=== PATIENT | male | born 1935 | race Caucasian/White ===

== ENCOUNTER → 2017-06-04 14:28 | Outpatient (CLI) | payer MEDICARE, OTHER, SELFPAY ==
--- NOTE | 2017-06-04 14:53 | CT_ITS ---
STUDY: CT ABDOMEN AND PELVIS WITH CONTRAST REASON FOR EXAM: Male, 82 years old. Right groin pain near reverse ileostomy. RADIATION DOSAGE (If Supplied By Facility): CTDIvol = ( 15.03 ) mGy, DLP = ( 830.15 ) mGycm TECHNIQUE: Transaxial images were obtained from the dome of the diaphragm to the symphysis pubis without oral contrast. 100ML ml of Isovue 300 contrast was administered. Sagittal and coronal images were reconstructed. Individualized dose optimization techniques were used for this CT. COMPARISON: Prior comparison studies are not available for review at this time. FINDINGS: The visualized lung bases are unremarkable. The visualized portions of the heart are within normal limits. 7 mm moderately defined oblong low-density in the anterolateral right lobe of the liver (series 2 image 18) consistent with a small cyst or hemangioma. The portal vein diameter is 11 mm. Normal gallbladder and extrahepatic biliary system. Near the ras hepatis the diameter of the common bile duct is 11 mm, but this tapers normally as it passes through the head of the pancreas. There are multiple benign punctate calcified granulomata of the spleen. Normal pancreas. Normal bilateral adrenal glands. 10 mm cortical cyst in the midpole of the right kidney. 1.7 x 1.95 x 2.1 cm hypodense, well-defined cortical cyst seen at the upper pole of the left kidney. No hydronephrosis. Normal visualized stomach. The caliber of the small intestine is within normal limits. A knuckle of bowel projects into hernia or ileostomy site at the mid anterior right abdominal wall. There is an anastomotic suture line involving nondistended small bowel just deep and to the right of this herniated segment. The cecum resides in the anterior right upper quadrant. There are a few mid to distal sigmoid colonic diverticula consistent with diverticulosis. There is an anastomotic suture line at the mid body of the rectum. The appendix is visualized and appears normal. There is diffuse atherosclerotic calcification of the abdominal aorta. The mid to distal aortic diameter is 2.25 cm. There is diffuse atherosclerotic calcification of the iliofemoral arteries with elongation and tortuosity of the common iliac segments. 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 Normal inferior vena cava. Normal retroperitoneum. Normal urinary bladder. There are prostatic calcifications. There is a healed midline surgical incision of the anterior abdominal wall. There are diffuse degenerative changes of the visualized spine, and a 10 degree levoscoliosis centered at L4. There are also mild osteoarthritic degenerative changes of the bilateral sacroiliac and hip joints. CT/Abdomen/Pelvis WITH Contrast IMPRESSION: 1. Prior segmental rectosigmoid resection with anastomosis at the mid rectal vault. Suture line also seen involving a small bowel loop on the abdominal musculature of the mid right anterior abdominal wall. Medial to this is a herniated knuckle of small bowel, a possible ileostomy site. Clinical correlation is needed. 2. No sign of bowel obstruction. There are a few distal sigmoid colonic diverticula without acute radiculitis. Incidental note of the cecum in the anterior right upper quadrant. The appendix is normal. 3. Atherosclerotic calcification of the abdominal aorta and iliofemoral arteries, with elongation and tortuosity of the common iliac segments. By itself, the aortic calcification contents significant risk for future cardiovascular event, Abdominal Aortic Calcific Deposits Are an Important Predictor of Vascular Morbidity and Mortality; Jose Braun, et al. Circulation, 2001;103:9644-2356. There is also 1.95 cm fusiform ectasia of the distal left common iliac artery. 4. Bilateral renal cortical cysts. 5. Small cyst in the lateral right lobe of liver. 6. Degenerative changes of the spine and pelvis, as noted. Electronically Signed: Fadi Aguiar MD at 18:13 EDT , Service support ,
[2017-06-04 15:47] LABS: Absolute Lymphocyte Count 1.72 X10^3/ul (0.83-4.51); Absolute Neutrophil Count 2.5 X10^3/uL (2.0-7.7); Basophil# 0.04 X10^3/uL; Basophil% 0.8 % (0-1); Eosinophil# 0.14 X10^3/uL; Eosinophils% 2.8 % (0-5); Hematocrit 45.1 % (40-54); Hemoglobin 15.2 g/dl (13.0-16.5); Lymphocyte # 1.72 X10^3/ul (4.0); Lymphocyte % 34.3 % (19-41); Mean Corp Hgb Conc 33.7 g/gl (32-36); Mean Corpuscular Hgb 29.6 pg (27.0-32.0); Mean Corpuscular Volume 87.9 fL (80-94); Monocyte# 0.61 X10^3/uL; Monocyte% 12.2 % (0-10); Neutrophil % 49.7 % (47-70); POSITIVE COUNT NO; POSITIVE DIFFERENTIAL NO; POSITIVE MORPHOLOGY NO; Platelet Count 161 K/mm3 (150-450); RBC Distribution Width CV 14.1 % (11.6-14.6); RBC Distribution Width SD 44.9 fl (35.1-43.9); Red Blood Count 5.13 M/mm3 (4.6-6.2)
[2017-06-04 16:02] LABS: ALB/GLOB Ratio 1.1 RATIO (0.9-2.4); AST(SGOT) 38 U/L (15-37); Alanine Aminotransfer ALT/SGPT 31 U/L (16-61); Albumin, Serum 4.1 g/dL (3.2-5.0); Alkaline Phosphatase 41 U/L (45-117); Anion Gap 7 (5-15); BUN 29 mg/dL (7-18); BUN/Creat Ratio 27.4 RATIO (10-20); Calcium,Total 9.7 mg/dL (8.5-10.1); Chloride 106 mmol/L (98-107); Creatinine, Serum 1.06 mg/dL (0.70-1.30); EST Glomerular Filtration Rate 71 mL/min (>60); Est Glom Filt Rate - Afr Amer 86 mL/min (>60); Globulin 3.8 g/dL (2.2-4.2); Glucose 85 mg/dL (74-106); Protein, Total 7.9 g/dL (6.4-8.2); Sodium Level 141 mmol/L (136-145)
== END ==
PROVIDERS: Family Provider Family Medicine; PCP Family Medicine; Visit Provider Family Medicine
DX: K57.30 Diverticulosis of large intestine without perforation or abscess without bleeding (principal); K63.89 Other specified diseases of intestine; N28.1 Cyst of kidney, acquired; K76.89 Other specified diseases of liver
CPT/HCPCS: 36415; 74177; 80053; 85025; Q9967

== ENCOUNTER 2017-06-11 07:51 | Day surgery (SDC) | payer MEDICARE, OTHER, SELFPAY ==
[2017-06-11] VITALS (9 sets, daily range): BP systolic 99–136; BP diastolic 58–78; PULSE 62–78; RESP 16–18; TEMP 36.2–36.9; O2SAT 92–98; BMI 30.2
--- NOTE | 2017-06-11 | HERN_PTH ---
PATIENT: MANDY THORNTON [place] [facility] [id number] AGE/SX: 82/M ROOM: RE06/11/[address]: Dr. Sonido Mooney MD : [id number] BED: DIS: 06/11/2017 SPEC #: [id number] RECD: 06/11/17 14:27 STATUS: RACH DIANE #: [id number] TRACIE: 06/11/17 00:[address]: Sonido Mooney DEPT: SURGICAL PATHOLOGY RECD BY: Beto Morrison ENTERED: 06/11/17 14:27 SP TYPE: Hernia OTHR DR: Dr. Shailesh Adler MD Tissues: HERNIA Procedures: Surgery Specimen Level II HEADER OPERATION: Hernia, incisional repair with mesh, stoma sight PRE-OP DIAGNOSIS: Hernia TISSUE SUBMITTED: Hernia sac and fascia margin MICROSCOPIC DIAGNOSIS Hernia sac and fascia margin: Pieces of fibroadipose tissue, fibroconnective tissue and skin with reactive changes, consistent with hernia sac and fascia margin. SJ:stefan 06/12/17 MICROSCOPIC DESCRIPTION Slides are reviewed. GROSS DESCRIPTION Received in fixative is one container labeled with the patient's name and designated hernia sac and fascia margin. The specimen consists of a piece of adipose tissue measuring 4.5 x 3 x 1 cm. Also received is a piece of cates-white skin ellipse measuring 4 x 1.5 x 1 cm and a piece of soft tissue measuring 4 x 0.5 x 0.2 cm. No mass lesion is identified. Crown Pouncer sections are submitted in one cassette. / TYLER:stefan 06/11/17 TC:5 CPT: 22051
[2017-06-11 08:21] LABS: Prothrombin Time Fingerstick 12.9 SEC (11.9-14.4)
[2017-06-11 08:33] LABS: Partial Thromboplast Time 29.2 Seconds (24.1-36.2)
[2017-06-11 09:05] LABS: Hemoglobin A1c 6.9 % (4.2-6.3)
[2017-06-11 09:16] LABS: Bedside Glucose 155 mg/dL (70-110)
[2017-06-11] MEDS: Cefazolin 2 GM in 0.9% Normal Saline 100 ML IV (09:53)
[2017-06-11] MEDS: Bupivacaine Mpf 0.5% 30 ML VIAL (11:00)
--- NOTE | 2017-06-11 11:17 | PCM.OPRPT ---
Report of Operation Date of Procedure: 06/11/17 Pre-Operative Diagnosis: stoma site incisional hernia Post-Operative Diagnosis: stoma site incisional hernia, small bowel adhesions Surgery/Procedure Performed:: lysis of adhesions, repair of stoma/incisional hernia with mesh Description of Surgical Findings:: 3cm defect stitcher set up operator automatic: None Type of Anesthesia:: General Anesthesiologist: Pankaj Donis - ASA3 Specimen's removed: hernia sac & fascial margin Estimated Blood Loss (mL): 50 Fluids Replaced: 1300 Description of Procedure: The patient was brought to the operating suite. Sign in was performed verifying patient, site, procedure, position, and DVT prophylaxis with SCDs. Patient received 2 g Ancef antibiotic prophylaxis. the area of herniation just medial and inferior to the previous ileostomy incision was identified and marked in the holding area and the patient concurred this planned operative site. Following induction of general anesthetic, the patients abdomen was prepped and draped in the usual fashion. Timeout was performed verifying patient, site, position. Local anesthetic was injected . A curvilinear incision was made and dissection carried down to the scarred fascia laterally. the skin scarred tissue was excised and sent to pathology. Dissection was continued around the fascial root and dissection was carried inferiorly, medially until the hernia sac was identified and opened carefully. Multiple loops of small bowel were adherent to the hernia sac within the hernia and the peritoneum at the edge and intra-abdominal area. The small bowel was circumferentially dissected off of the sac and the anterior peritoneum. Once this was completed, the anterior medial hernia sac was fully dissected the subcutaneous tissues. Next, separation of the posterior and anterior sheaths were performed medially, superiorly, inferiorly and dissection was continued laterally, creating a posterior and anterior plane anterior to the rectus muscle. The hernia sac was then excised. The peritoneum closed the running 3-0 Vicryl suture. The posterior rectus sheath was then closed with a running 0 Prolene suture. Armin 5x7.5cm (folded to 5x7.5)[id number], lot [id number] exp 10/24/21 - was then folded in thirds and secured with interrupted 0 Prolene sutures to the anterior fascial sheath at the margins of the pocket created between the posterior and anterior sheaths secured with interrupted 0 Prolene sutures. Next, the anterior sheath was closed with a running 0 Prolene suture, closing the fascial defect encompassing the median line of the mesh with the fascial closure Following this subcutaneous fat was reapproximatedwith a 3-0 Vicryl suture. Skin was closed with a running 4-0 Monocryl subcuticular sutures. Steri-Strips and bandages were applied. The patient was brought to recovery room in stable condition. Grafts/Implants Used: Parietene 5x7.5cm (folded to 5x7.5)ref-[id number], lot [id number] exp 10/24/21 - Admit VTE Documentation VTE Present on Admission: No VTE Mechan Device Prophylaxis: SCD's
--- NOTE | 2017-06-11 11:21 | OP.PCM_ITS ---
Report of Operation Date of Procedure: 06/11/17 Pre-Operative Diagnosis: stoma site incisional hernia Post-Operative Diagnosis: stoma site incisional hernia, small bowel adhesions Surgery/Procedure Performed:: lysis of adhesions, repair of stoma/incisional hernia with mesh Description of Surgical Findings:: 3cm defect driver salesman: None Type of Anesthesia:: General Anesthesiologist: Pankaj Donis - ASA3 Specimen's removed: hernia sac & fascial margin Estimated Blood Loss (mL): 50 Fluids Replaced: 1300 Description of Procedure: The patient was brought to the operating suite. Sign in was performed verifying patient, site, procedure, position, and DVT prophylaxis with SCDs. Patient received 2 g Ancef antibiotic prophylaxis. the area of herniation just medial and inferior to the previous ileostomy incision was identified and marked in the holding area and the patient concurred this planned operative site. Following induction of general anesthetic, the patient?s abdomen was prepped and draped in the usual fashion. Timeout was performed verifying patient, site , position. Local anesthetic was injected . A curvilinear incision was made and dissection carried down to the scarred fascia laterally. the skin scarred tissue was excised and sent to pathology. Dissection was continued around the fascial root and dissection was carried inferiorly, medially until the hernia sac was identified and opened carefully. Multiple loops of small bowel were adherent to the hernia sac within the hernia and the peritoneum at the edge and intra- abdominal area. The small bowel was circumferentially dissected off of the sac and the anterior peritoneum. Once this was completed, the anterior medial hernia sac was fully dissected the subcutaneous tissues. Next, separation of the posterior and anterior sheaths were performed medially, superiorly, inferiorly and dissection was continued laterally, creating a posterior and anterior plane anterior to the rectus muscle. The hernia sac was then excised. The peritoneum closed the running 3-0 Vicryl suture. The posterior rectus sheath was then closed with a running 0 Prolene suture. Parietene 5x7.5cm (folded to 5x7.5)ref-[id number], lot [id number] exp 10/24/21 - was then folded in thirds and secured with interrupted 0 Prolene sutures to the anterior fascial sheath at the margins of the pocket created between the posterior and anterior sheaths secured with interrupted 0 Prolene sutures. Next , the anterior sheath was closed with a running 0 Prolene suture, closing the fascial defect encompassing the median line of the mesh with the fascial closure Following this subcutaneous fat was reapproximatedwith a 3-0 Vicryl suture. Skin was closed with a running 4-0 Monocryl subcuticular sutures. Steri-Strips and bandages were applied. The patient was brought to recovery room in stable condition. Grafts/Implants Used: Parietene 5x7.5cm (folded to 5x7.5)ref-[id number], lot [id number] exp 10/24/21 - Admit VTE Documentation VTE Present on Admission: No VTE Mechan Device Prophylaxis: SCD's
--- NOTE | 2017-06-11 11:26 | PCM.DC.HER ---
Discharge Diet: Light diet - advance as tolerated Discharge Activity: Return to Normal Activity, May Drive - when you are no longer taking narcotic pain medications., May Shower - with the bandage in place 1-2 days after surgery. Lifting Restrictions: 20 pounds for 8 weeks. Additional Activity Instructions:: Climbing stairs is fine, walking is encouraged. Sitting in bed may be uncomfortable. Sitting up using your lateral muscles (sitting up sideways) is usually more comfortable. Do not drive, work heavy equipment of sign legal documents for 24 hours. If your hernia repair was an ingunial repair, you may have scrotal swelling, an ice pack and/or athletic support can provide more comfort. Pain medications may cause nausea, you should typically eat light foods as you take your pain medications. Pain medications may also cause constipation. If you have difficulty with this, discuss with your doctor. Call your doctor if your incision/area has: Continuous Slow Oozing, Sudden Increased Bleeding, Increased Pain/ Swelling, Increased Redness, Foul Smelling Discharge Call your doctor if you observe: Fever of 101 or Higher Suture Line Care: Avoid Pulling/Pushing, Avoid Pinching/Bending Additional Dressing/Incision Instructions:: Leave the operative bandage on for 2-3 days. When you remove the bandage, leave the steri-strips on place until your follow up appointment or they fall off. Allergies/Adverse Reactions: Allergies acetaminophen [From Percocet] Allergy (Verified 06/10/17 09:12) I GET GOOFY iodine Allergy (Verified 06/10/17 09:12) Itching oxycodone [From Percocet] Allergy (Verified 06/10/17 09:12) I GET GOOFY Medications to take at Discharge Ascorbic Acid [Vitamin C] 500 mg PO DAILY@0800 12/01/15 Cholecalciferol (VIT D3) [Vitamin D3] 2,000 unit PO DAILY 12/01/15 Metformin HCl [Metformin HCl ER] 1,000 mg PO BID 12/01/15 Atenolol [Tenormin (beta erasmo)] 25 mg PO QHS 06/10/17 B2/Vit A,C & E/Lut/Zeaxanth/Mn [Icaps Tablet] 1 tab PO DAILY 06/10/17 Celecoxib [Celebrex] 200 mg PO PRN PRN 06/10/17 Pregabalin [Lyrica] 100 mg PO PRN PRN 06/10/17 Simvastatin 20 mg PO QHS 06/10/17 Hydrocodone/Acetaminophen [[place] 5-325 Tablet] 1 ea PO Q6H PRN PRN 7 Days #14 tab 06/11/17 The following prescriptions were given: Hydrocodone/Acetaminophen [[place] 5-325 Tablet] 1 ea PO Q6H PRN PRN 7 Days #14 tab PRN Reason: Pain Primary Care Physician: Shaliesh Adler MD [Primary Care Provider] - Please Follow Up With: Sonido Mooney MD - [phone] When: Plan to have a follow up appointment in 7 days. Call to schedule.
[2017-06-11 12:06] LABS: Bedside Glucose 114 mg/dL (70-110)
== END 2017-06-11 14:15 | disposition home or self-care (01) ==
LOC: SDC 07:51 → AC 07:53
PROVIDERS: Family Provider Family Medicine; PCP Family Medicine; Visit Provider Surgery
PROC: (CPT 49560; principal; 2017-06-11 09:25)
DX: K43.2 Incisional hernia without obstruction or gangrene (principal); K66.0 Peritoneal adhesions (postprocedural) (postinfection); M19.90 Unspecified osteoarthritis, unspecified site; I25.10 Atherosclerotic heart disease of native coronary artery without angina pectoris; E11.9 Type 2 diabetes mellitus without complications; I10 Essential (primary) hypertension; E78.00 Pure hypercholesterolemia, unspecified; G25.81 Restless legs syndrome; Z85.038 Personal history of other malignant neoplasm of large intestine; Z87.19 Personal history of other diseases of the digestive system; Z87.891 Personal history of nicotine dependence; Z95.1 Presence of aortocoronary bypass graft; Z96.653 Presence of artificial knee joint, bilateral; Z79.84 Long term (current) use of oral hypoglycemic drugs; Z79.899 Other long term (current) drug therapy
CPT/HCPCS: 00832; 49560; 49568; 36416; 82962; 83036; 85610; 85730; 88302; J7120; C1781

== ENCOUNTER → 2017-10-06 09:10 | Outpatient (CLI) | payer MEDICARE, OTHER, SELFPAY ==
[2017-10-06 13:05] LABS: AST(SGOT) 30 U/L (15-37); Alanine Aminotransfer ALT/SGPT 26 U/L (16-61); Albumin, Serum 3.6 g/dL (3.2-5.0); Alkaline Phosphatase 44 U/L (45-117); Bilirubin, Direct 0.17 mg/dL (0.00-0.30); Cholesterol 127 mg/dL (200); High Density Lipoprotein 29 mg/dL; Protein, Total 7.6 g/dL (6.4-8.2); Triglycerides 225 mg/dL; Very Low Density Lipoprotein 45 mg/dL (5-40)
== END ==
PROVIDERS: Family Provider Family Medicine; PCP Family Medicine; Visit Provider Physician Assistant Medical
DX: E78.5 Hyperlipidemia, unspecified (principal); Z79.899 Other long term (current) drug therapy
CPT/HCPCS: 36415; 80061; 80076

== ENCOUNTER → 2018-07-31 09:56 | Outpatient (CLI) | payer MEDICARE, OTHER, SELFPAY ==
[2017-11-26 15:41] VITALS: BMI 29.5
[2018-07-31 13:17] LABS: Vitamin B12 239 pg/mL (211-911)
== END ==
PROVIDERS: Family Provider Family Medicine; PCP Family Medicine; Referring Provider Family Medicine; Visit Provider Family Medicine
DX: F03.90 Unspecified dementia, unspecified severity, without behavioral disturbance, psychotic disturbance, mood disturbance, and anxiety (principal)
CPT/HCPCS: 36415; 82607

== ENCOUNTER → 2018-10-05 10:58 | Outpatient (CLI) | payer MEDICARE, OTHER, SELFPAY ==
[2018-08-14 13:07] VITALS: BMI 29.8
[2018-10-05 12:50] LABS: Anion Gap 10 (5-15); BUN 21 mg/dL (7-18); BUN/Creat Ratio 18.3 RATIO (10-20); Chloride 107 mmol/L (98-107); Cholesterol 129 mg/dL (200); Creatinine, Serum 1.15 mg/dL (0.70-1.30); EST Glomerular Filtration Rate 64 mL/min (>60); Est Glom Filt Rate - Afr Amer 78 mL/min (>60); Glucose 136 mg/dL (74-106); High Density Lipoprotein 33 mg/dL; Sodium Level 141 mmol/L (136-145); Triglycerides 254 mg/dL; Very Low Density Lipoprotein 51 mg/dL (5-40)
== END ==
PROVIDERS: Family Provider Family Medicine; PCP Family Medicine; Visit Provider Family Medicine
DX: E11.9 Type 2 diabetes mellitus without complications (principal)
CPT/HCPCS: 36415; 80048; 80061

== ENCOUNTER → 2019-04-05 11:43 | Outpatient (CLI) | payer MEDICARE, OTHER, SELFPAY ==
[2019-03-08 10:55] VITALS: BMI 29.5
[2019-04-05 14:27] LABS: Anion Gap 5 (5-15); BUN 21 mg/dL (7-18); BUN/Creat Ratio 20.2 RATIO (10-20); Calcium,Total 10.2 mg/dL (8.5-10.1); Chloride 105 mmol/L (98-107); Cholesterol 130 mg/dL (200); Creatinine, Serum 1.04 mg/dL (0.70-1.30); EST Glomerular Filtration Rate 72 mL/min (>60); Est Glom Filt Rate - Afr Amer 87 mL/min (>60); Glucose 91 mg/dL (74-106); High Density Lipoprotein 35 mg/dL; Potassium 4.2 mmol/L (3.5-5.1); Sodium Level 138 mmol/L (136-145); Triglycerides 207 mg/dL; Very Low Density Lipoprotein 41 mg/dL (5-40)
== END ==
PROVIDERS: PCP Family Medicine; Referring Provider Family Medicine; Visit Provider Family Medicine
DX: E11.9 Type 2 diabetes mellitus without complications (principal); E78.5 Hyperlipidemia, unspecified
CPT/HCPCS: 36415; 80048; 80061

== ENCOUNTER → 2020-01-13 11:10 | Outpatient (CLI) | payer MEDICARE, OTHER, SELFPAY ==
[2019-09-07 09:11] VITALS: BMI 29.9
[2020-01-13 12:49] LABS: Anion Gap 1 (5-15); BUN 14 mg/dL (7-18); BUN/Creat Ratio 11.9 RATIO (10-20); Calcium,Total 9.8 mg/dL (8.5-10.1); Chloride 109 mmol/L (98-107); Cholesterol 145 mg/dL (200); Creatinine, Serum 1.18 mg/dL (0.70-1.30); EST Glomerular Filtration Rate 62 mL/min (>60); Est Glom Filt Rate - Afr Amer 75 mL/min (>60); Glucose 111 mg/dL (74-106); High Density Lipoprotein 32 mg/dL; Potassium 4.2 mmol/L (3.5-5.1); Sodium Level 140 mmol/L (136-145); Triglycerides 256 mg/dL; Very Low Density Lipoprotein 51 mg/dL (5-40)
== END ==
PROVIDERS: PCP Family Medicine; Visit Provider Family Medicine
DX: E11.9 Type 2 diabetes mellitus without complications (principal)
CPT/HCPCS: 36415; 80048; 80061

== ENCOUNTER → 2020-07-19 11:00 | Outpatient (CLI) | payer MEDICARE, OTHER, SELFPAY ==
[2020-06-05 13:48] VITALS: BMI 28.0
[2020-07-19 12:34] LABS: Anion Gap 6 (5-15); BUN 18 mg/dL (7-18); BUN/Creat Ratio 19.2 RATIO (10-20); Chloride 106 mmol/L (98-107); Cholesterol 135 mg/dL (200); Creatinine, Serum 0.94 mg/dL (0.70-1.30); EST Glomerular Filtration Rate 81 mL/min (>60); Est Glom Filt Rate - Afr Amer 98 mL/min (>60); Glucose 105 mg/dL (74-106); High Density Lipoprotein 34 mg/dL; Potassium 3.7 mmol/L (3.5-5.1); Sodium Level 141 mmol/L (136-145); Triglycerides 209 mg/dL; Very Low Density Lipoprotein 42 mg/dL (5-40)
== END ==
PROVIDERS: PCP Family Medicine; Referring Provider Family Medicine; Visit Provider Family Medicine
DX: E11.9 Type 2 diabetes mellitus without complications (principal)
CPT/HCPCS: 36415; 80048; 80061

== ENCOUNTER → 2021-02-21 11:21 | Outpatient (CLI) | payer MEDICARE, OTHER, SELFPAY ==
[2021-02-21 15:29] LABS: Anion Gap 5 (5-15); BUN 13 mg/dL (7-18); BUN/Creat Ratio 12.4 RATIO (10-20); Calcium,Total 10.1 mg/dL (8.5-10.1); Chloride 106 mmol/L (98-107); Cholesterol 139 mg/dL (200); Creatinine, Serum 1.05 mg/dL (0.70-1.30); EST Glomerular Filtration Rate 71 mL/min (>60); Est Glom Filt Rate - Afr Amer 86 mL/min (>60); Glucose 165 mg/dL (74-106); High Density Lipoprotein 34 mg/dL; Potassium 3.8 mmol/L (3.5-5.1); Sodium Level 140 mmol/L (136-145); Triglycerides 238 mg/dL; Very Low Density Lipoprotein 48 mg/dL (5-40)
== END ==
PROVIDERS: PCP Family Medicine; Visit Provider Family Medicine
DX: I10 Essential (primary) hypertension (principal)
CPT/HCPCS: 36415; 80048; 80061

== ENCOUNTER 2021-05-23 11:05 | Outpatient (CLI) | payer MEDICARE, OTHER, SELFPAY ==
[2021-05-23 13:18] LABS: Anion Gap 5 (5-15); BUN 19 mg/dL (7-18); BUN/Creat Ratio 17.4 RATIO (10-20); Calcium,Total 9.6 mg/dL (8.5-10.1); Chloride 106 mmol/L (98-107); Creatinine, Serum 1.09 mg/dL (0.70-1.30); EST Glomerular Filtration Rate 68 mL/min (>60); Est Glom Filt Rate - Afr Amer 82 mL/min (>60); Glucose 138 mg/dL (74-106); Potassium 3.8 mmol/L (3.5-5.1); Sodium Level 139 mmol/L (136-145)
[2021-05-23 13:40] LABS: Hemoglobin A1c 5.6 % (3.8-5.6)
== END 2021-05-23 23:59 | disposition home or self-care (01) ==
LOC: MFPLAB 11:09
PROVIDERS: PCP Family Medicine; Referring Provider Family Medicine; Visit Provider Family Medicine
DX: E11.9 Type 2 diabetes mellitus without complications (principal)
CPT/HCPCS: 36415; 80048; 83036

== ENCOUNTER → 2021-08-29 | Outpatient (CLI) | payer MEDICARE, OTHER, SELFPAY ==
[2021-08-29 15:25] LABS: Anion Gap 6 (5-15); BUN 22 mg/dL (7-18); BUN/Creat Ratio 20.2 RATIO (10-20); Calcium,Total 9.9 mg/dL (8.5-10.1); Chloride 107 mmol/L (98-107); Cholesterol 122 mg/dL (200); Creatinine, Serum 1.09 mg/dL (0.70-1.30); EST Glomerular Filtration Rate 68 mL/min (>60); Est Glom Filt Rate - Afr Amer 82 mL/min (>60); Glucose 120 mg/dL (74-106); High Density Lipoprotein 27 mg/dL; Potassium 3.9 mmol/L (3.5-5.1); Sodium Level 140 mmol/L (136-145); Triglycerides 194 mg/dL; Very Low Density Lipoprotein 39 mg/dL (5-40)
== END | disposition home or self-care (01) ==
LOC: MFPLAB 11:21
PROVIDERS: PCP Family Medicine; Visit Provider Family Medicine
DX: E11.9 Type 2 diabetes mellitus without complications (principal)
CPT/HCPCS: 36415; 80048; 80061

== ENCOUNTER → 2021-09-03 | Outpatient (CLI) | payer MEDICARE, OTHER, SELFPAY | END | disposition home or self-care (01) | LOC: MFPLAB 15:40 | PROVIDERS: PCP Family Medicine; Visit Provider Family Medicine | DX: L02.91 Cutaneous abscess, unspecified (principal) | CPT/HCPCS: 87070; 87077; 87186; 87205 ==

== ENCOUNTER → 2021-11-26 | Outpatient (CLI) | payer MEDICARE, OTHER, SELFPAY ==
[2021-11-26 18:29] LABS: Anion Gap 8 (5-15); BUN 17 mg/dL (7-18); Chloride 103 mmol/L (98-107); Cholesterol 135 mg/dL (200); EST Glomerular Filtration Rate 75 mL/min (>60); Est Glom Filt Rate - Afr Amer 91 mL/min (>60); Glucose 134 mg/dL (74-106); High Density Lipoprotein 32 mg/dL; Potassium 3.9 mmol/L (3.5-5.1); Sodium Level 140 mmol/L (136-145); Triglycerides 204 mg/dL; Very Low Density Lipoprotein 41 mg/dL (5-40)
== END | disposition home or self-care (01) ==
LOC: MFPLAB 11:35
PROVIDERS: PCP Family Medicine; Visit Provider Family Medicine
DX: I10 Essential (primary) hypertension (principal)
CPT/HCPCS: 36415; 80048; 80061

== ENCOUNTER 2022-02-08 09:22 | Inpatient (IN) | payer MEDICARE, OTHER, SELFPAY ==
[2022-02-08] VITALS (8 sets, daily range): BP systolic 96–113; BP diastolic 53–60; PULSE 55–72; RESP 12–20; TEMP 36.3–37.2; O2SAT 88–97; BMI 25.3; BMI 24.7
--- NOTE | 2022-02-08 10:12 | CT_ITS ---
STUDY: CT BRAIN WITHOUT CONTRAST REASON FOR EXAM: Male, 87 years old. Head injury due to a fall. RADIATION DOSAGE (If Supplied By Facility): CTDIvol = ( 44.99 ) mGy, DLP = ( 745.49 ) mGycm TECHNIQUE: Transaxial CT imaging of the brain was performed without administration of intravenous contrast material. Individualized dose optimization techniques were used for this CT. COMPARISON: No relevant priors. FINDINGS: Normal soft tissue structures. Normal calvarium. There is mild cerebral atrophy with widening of the extra-axial spaces and ventricular dilatation. There are areas of decreased attenuation within the white matter tracts of the supratentorial brain, consistent with microvascular disease changes. Normal basal ganglia and thalami. Normal brainstem. Normal cerebellum. There is no intracranial hemorrhage. There are no findings of an acute ischemic infarction. Atherosclerotic plaque formation of the vertebral arteries and cavernous portions of the internal carotid arteries bilaterally. Normal visualized paranasal sinuses. CT/Brain/Head without Contrast IMPRESSION: Chronic involutional changes of the brain. Electronically Signed: Brandon Kaplan MD at 10:42 EST ,
--- NOTE | 2022-02-08 10:12 | EKG12_ITS ---
Test Reason : FALL Blood Pressure : / mmHG Vent. Rate : 059 BPM Atrial Rate : 059 BPM P-R Int : 186 ms QRS Dur : 090 ms QT Int : 438 ms P-R-T Axes : 103 010 057 degrees QTc Int : 433 ms Sinus bradycardia Nonspecific T wave abnormality Abnormal ECG Confirmed by EMANUEL WELLINGTON, ANNETTE ([id number]), editorial director RUBEN GRIMES ([id number]) on 02/11/2022 12:58:35 PM Referred By: GENEVIEVE Confirmed By:ANNETTE CASTELLANOS MD
--- NOTE | 2022-02-08 10:12 | RAD_ITS ---
STUDY: X-RAY CHEST REASON FOR EXAM: Male, 87 years old. Fever. Increasing generalized weakness. TECHNIQUE: Single AP portable view of the chest. COMPARISON: Comparison is made with prior study dated 03/11/2017. FINDINGS: EKG electrodes are seen. Stable increased interstitial markings at the lung bases suggestive of a scarring. There is no demonstrated pleural abnormality. Sternal cerclage wires and vascular clips are present from a prior sternotomy and coronary artery bypass graft procedure (CABG). Calcified bilateral hilar lymph nodes. Normal visualized pulmonary arteries. There is atherosclerotic calcification of the aortic arch with tortuosity. There are diffuse degenerative changes of the visualized thoracic spine. Normal visualized ribs, clavicles, and shoulders. There is no demonstrated abnormality of the visualized soft tissue structures of the upper abdomen. RAD/Chest 1 View (Portable) IMPRESSION: Stable increased interstitial markings suggestive of chronic scarring. Prior CABG. Electronically Signed: Brandon Kaplan MD at 10:58 EST ,
--- NOTE | 2022-02-08 10:17 | ED.VIS.FALL ---
HPI HPI - Fall History of Present Illness Chief Complaint: Fall Narrative Narrative: 87-year-old male with history of diabetes, hyperlipidemia, hypertension, PVD, CABG presenting today with generalized weakness. His states that he has dementia and he has been slowly declining in his ability to ambulate. His gives the history as he is a poor informant. She states that at 1 point yesterday he fell and she could not get him off the ground. She called EMS who helped him get on his feet and get into bed. She states that she refused to have him transferred to the hospital yesterday but notes that he had a fever of 103 ?F yesterday was treated with Tylenol. There is been no return of fever. She states he coughs but nothing out of the ordinary. She does note that she had a cold this last week and recovered. She states that today he was on the toilet and fell. This was not witnessed but she believes he hit his head. He is not acting abnormal for her and states this is his baseline. She is concerned because he is too weak now to walk with his walker. She is concerned she will fall. She wants to try to get him into an extended care facility. [facility] Medical History Anemia Atherosclerotic heart disease of [place] coronary artery without angina pectoris Bilateral carotid artery stenosis Essential hypertension Peripheral vascular disease Pure hypercholesterolemia Thrombocythemia Home Medications nitroglycerin 0.4 mg sublingual tablet 0.4 mg sublingual Q5-15M PRN chest pain #90 tabs 11/26/17 [Rx Last Taken Unknown] metformin 1,000 mg tablet 1,000 mg PO DAILY 08/14/18 [History Last Taken 02/07/22] memantine 5 mg tablet 5 mg PO QAM 06/05/20 [History Last Taken 02/07/22] simvastatin 20 mg tablet 20 mg PO QHS #90 tabs 06/27/21 [Rx Last Taken 02/07/22] atenolol 25 mg tablet 25 mg PO QHS #90 tabs 10/02/21 [Rx Last Taken 02/07/22] donepezil 10 mg tablet 20 mg PO DAILY 01/09/22 [History Last Taken 02/07/22] quetiapine 200 mg tablet (Seroquel) 200 mg PO DAILY 01/09/22 [History Last Taken 02/07/22] Allergy/AdvReac Type Severity Reaction Status Date / Time acetaminophen [From Percocet] Allergy I GET Verified 02/08/22 09:22 GOOFY iodine Allergy Itching Verified 02/08/22 09:22 oxycodone [From Percocet] Allergy I GET Verified 02/08/22 09:22 GOOFY Surgical History History of hernia repair (~05/2017) Hx of CABG (~10/09/00) Social History Smoking Status: Former smoker ROS ROS ED Review of Systems ROS Unobtainable: due to mental status EXAM Physical Exam Const Vital Signs: 02/08/22 09:23 02/08/22 09:32 Temperature 98 F Temperature Source Oral Pulse Rate 72 Respiratory Rate 18 Respiratory Pattern Normal Blood Pressure 113/60 Blood Pressure Mean 77 Pulse Ox 88 Oxygen Delivery Method Room Air Positive well nourished General Appearance ED: NAD HEENT Reports normocephalic and TM's normal bilaterally atraumatic Eyes PERRL and EOMs intact bilaterally Neck full ROM Chest Wall inspection of chest normal and palpation of chest normal Resp normal respiratory effort and no retractions Cardio regular rate and regular rhythm GI non-tender Back/Spine no CVA tenderness Neuro CN's II-XII intact bilaterally, moves all extremities, no focal motor deficits and no sensory deficits noted Sensorium / Orientation: alert Motor Exam: general weakness Psych mental status grossly normal MDM MDM MDM Narrative Medical decision making narrative: 87-year-old male presenting with generalized weakness and falls. Patient is a poor informant and the history given by his . She has concerned about his weakness, inability ambulate, falls. She also stated that he had a fever yesterday which improved with Tylenol. EKG on my interpretation shows a sinus rhythm with a ventricular to 59 bpm without sign of ischemic change or dysrhythmia. Chest x-ray on my interpretation shows no acute cardiopulmonary process and the radiologist interprets this and agrees. Pelvis x-ray shows no acute fractures. on my interpretation. CT brain was obtained and is negative for acute intracranial findings. CBC shows pancytopenia. Patient is known to have thrombocytopenia and anemia. CMP shows normal LFTs. Creatinine slightly elevated 1.31. BUN/creatinine ratio 26. Electrolytes unremarkable with exception of potassium 3.3. Patient was given a 500 cc bolus of normal saline. High-sensitivity troponin returned at 47. BNP slightly elevated 164. He did test positive for influenza A today. Given that the patient is unable to ambulate and his cannot care for him he will need to be hospitalized. We will discussed with the hospitalist. Impression: 1. Generalized weakness 2. Falls 3. Pancytopenia 4. Dehydration 5. Influenza A 6. Closed head injury Lab Data Attestation: I reviewed the patient's lab results. Labs: Laboratory Results - last 24 hr 02/08/22 02/08/22 02/08/22 09:40 09:40 09:40 WBC 3.8 L RBC 4.23 L Hgb 12.0 L Hct 38.0 L MCV 89.8 MCH 28.4 MCHC 31.6 L RDW Std Deviation 46.1 H RDW Coeff of Meryl 14.1 Plt Count 90 L MPV 10.2 Immature Gran % (Auto) 0.300 Neut % (Auto) 66.5 Lymph % (Auto) 25.6 [place] % (Auto) 6.8 Eos % (Auto) 0.3 Baso % (Auto) 0.5 Absolute Neuts (auto) 2.6 Absolute Lymphs (auto) 0.98 Nucleated RBC % 0 Differential Comment SCANNED Platelet Estimate MOD DEC Sodium 141 Potassium 3.3 L Chloride 106 Carbon Dioxide 30.0 Anion Gap 5 BUN 26 H Creatinine 1.31 H Estim Creat Clear Calc 41.02 Est GFR (MDRD) Af Amer 67 Est GFR (MDRD) Non-Af 55 L BUN/Creatinine Ratio 19.8 Glucose 133 H Calcium 9.5 Total Bilirubin 0.70 AST 41 H ALT 13 L Alkaline Phosphatase 48 Troponin I High Sens 47 B-Natriuretic Peptide 164.8 H Total Protein 7.2 Albumin 3.4 Globulin 3.8 Albumin/Globulin Ratio 0.9 Radiography Diagnostic Testing: Clinical Impression(s) from Imaging Studies Brain CT 02/08/22 10:12 IMPRESSION: Chronic involutional changes of the brain. Electronically Signed: Brandon Kaplan MD at 10:42 EST , Chest X-Ray 02/08/22 10:12 IMPRESSION: Stable increased interstitial markings suggestive of chronic scarring. Prior CABG. Electronically Signed: Brandon Kaplan MD at 10:58 EST , Pelvis X-Ray 02/08/22 10:20 IMPRESSION: Degenerative changes. No fracture is seen. Electronically Signed: Brandon Kaplan MD at 10:59 EST , Discharge Plan Triage Chief Complaint: Fall ED Provider: Chester Burger Dx/Rx/DC Orders Prescriptions: No Action nitroglycerin 0.4 mg tablet, sublingual 0.4 mg SUBLINGUAL Q5-15M PRN (Reason: chest pain) Qty: 90 6RF Rx Instructions: until response; do not exceed 3 doses per episode metformin 1,000 mg tablet 1,000 mg PO DAILY memantine 5 mg tablet 5 mg PO QAM donepezil 10 mg tablet 20 mg PO DAILY simvastatin 20 mg tablet 20 mg PO QHS Qty: 90 3RF quetiapine [Seroquel] 200 mg tablet 200 mg PO DAILY atenolol 25 mg tablet 25 mg PO QHS Qty: 90 3RF Primary Care Provider: Shailesh Alder Referrals: Shailesh Adler MD [Primary Care Provider] -
--- NOTE | 2022-02-08 10:20 | RAD_ITS ---
STUDY: X-RAY - PELVIS REASON FOR EXAM: Male, 87 years old. Fall TECHNIQUE: One view of the pelvis was obtained. COMPARISON: None. FINDINGS: There is a non-specific bowel gas pattern. Normal visualized soft tissue structures. There is narrowing with cortical sclerosis and osteophyte formation of the sacroiliac joint consistent with degenerative osteoarthritic changes. Normal visualized bilateral superior and inferior pubic rami. Normal pubic symphysis. Normal ischial tuberosities. Normal visualized right femoral head. Normal right acetabulum. There is mild articular joint space narrowing of the right hip. Normal visualized left femoral head. Normal left acetabulum. There is mild articular joint space narrowing of the left hip. Degenerative changes of the lumbar spine. RAD/Pelvis 1 or 2 Views IMPRESSION: Degenerative changes. No fracture is seen. Electronically Signed: Brandon Kaplan MD at 10:59 EST ,
[2022-02-08 10:29] LABS: Absolute Lymphocyte Count 0.98 X10^3/uL (0.83-4.51); Absolute Neutrophil Count 2.6 X10^3/uL (2.0-7.7); Basophil# 0.02 X10^3/uL; Basophil% 0.5 % (0-1); Eosinophil# 0.01 X10^3/uL; Eosinophils% 0.3 % (0-5); Lymphocyte # 0.98 X10^3/ul (0.83-4.51); Lymphocyte % 25.6 % (19-41); Mean Corp Hgb Conc 31.6 g/dL (32-36); Mean Corpuscular Hgb 28.4 pg (27.0-32.0); Mean Corpuscular Volume 89.8 fL (80-94); Mean Platelet Vol. 10.2 fl (6.2-12.0); Monocyte# 0.26 X10^3/uL; Monocyte% 6.8 % (0-10); NRBC Flagged by Analyzer 0 % (0-5); Neutrophil # 2.55 X10^3/uL (2.7-7.7); Neutrophil % 66.5 % (47-70); POSITIVE COUNT YES; Platelet Count 90 K/mm3 (150-450); RBC Distribution Width CV 14.1 % (11.6-14.6); RBC Distribution Width SD 46.1 fl (35.1-43.9); Red Blood Count 4.23 M/mm3 (4.6-6.2); White Blood Count 3.8 K/mm3 (4.4-11.0)
[2022-02-08 10:32] LABS: Differential Indicated SCAN CRITERIA MET
[2022-02-08 10:42] LABS: ALB/GLOB Ratio 0.9 RATIO (0.9-2.4); AST(SGOT) 41 U/L (15-37); Alanine Aminotransfer ALT/SGPT 13 U/L (16-61); Albumin, Serum 3.4 g/dL (3.2-5.0); Alkaline Phosphatase 48 U/L (45-117); Anion Gap 5 (5-15); BUN 26 mg/dL (7-18); BUN/Creat Ratio 19.8 RATIO (10-20); Calcium,Total 9.5 mg/dL (8.5-10.1); Chloride 106 mmol/L (98-107); Creatinine, Serum 1.31 mg/dL (0.70-1.30); EST Glomerular Filtration Rate 55 mL/min (>60); Est Glom Filt Rate - Afr Amer 67 mL/min (>60); Estimated Creatinine Clearance 41.02 ml/min; Globulin 3.8 g/dL (2.2-4.2); Glucose 133 mg/dL (74-106); Potassium 3.3 mmol/L (3.5-5.1); Protein, Total 7.2 g/dL (6.4-8.2); Sodium Level 141 mmol/L (136-145); Troponin-I HS 47 pg/mL (3.0-78.0)
[2022-02-08 10:50] LABS: BNP,B-Type NATRIURETIC PEPTIDE 164.8 pg/mL (0-100)
[2022-02-08 10:51] LABS: Differential Comment SCANNED; Platelet Estimate MOD DEC (ADEQ)
--- NOTE | 2022-02-08 11:56 | HP.PCM.HOS_ITS ---
HPI - General General Date of Admission: 02/08/22 Date of Service: 02/08/22 Chief Complaint: weakness HPI Narrative MANDY THORNTON, is a 87 M with an extensive PMH as outlined who presents via the ED on 02/08/2022 with a complaint of generalised weakness. Patient has dementia and had been getting weaker at home. He also had associated fever and a cough. also had a cough last week. had been trying to get him into a assisted facility. He fell the day before admission, and was too weak to get up on his own. had to call the EMS to get him up, but refused to have him brought to the hospital yesterday. However, he was in the toilet today and fell at home. IT was an unwitnessed fall, though believes he hit his head. He was too wek to get up and is unable to ambulate. therefore brought him in to the ED for evaluation. Vitals at time of review were blood pressure 113/60, pulse rate of 72 and respiratory rate of 18. Temperature was 98 Fahrenheit and he was saturating at 88% on room air. CBC showed WBC of 3.8 with hemoglobin of 12 and platelets of 90. Chemistry showed sodium of 141 with potassium of 3.3 and creatinine of 1.31. BNP was 164.8. CT of the brain showed no acute intracranial pathology a nd showed chronic involutional changes of the brain. Chest x-ray showed stable increased interstitial markings suggestive of chronic scarring and pelvic x-ray showed no evidence of fracture. COVID test was negative and influenza A screen was positive. He has been admitted to be managed for debility with failure to thrive due to influenza A infection. [facility] Medical History (Updated 02/08/22 @ 12:[address] Christen Infante MD) Anemia Atherosclerotic heart disease of [place] coronary artery without angina pectoris Bilateral carotid artery stenosis Essential hypertension Peripheral vascular disease Pure hypercholesterolemia Thrombocythemia Home Medications nitroglycerin 0.4 mg sublingual tablet 0.4 mg sublingual Q5-15M PRN chest pain #90 tabs 11/26/17 [Rx Last Taken Unknown] metformin 1,000 mg tablet 1,000 mg PO DAILY 08/14/18 [History Last Taken 02/07/22] memantine 5 mg tablet 5 mg PO QAM 06/05/20 [History Last Taken 02/07/22] simvastatin 20 mg tablet 20 mg PO QHS #90 tabs 06/27/21 [Rx Last Taken 02/07/22] atenolol 25 mg tablet 25 mg PO QHS #90 tabs 10/02/21 [Rx Last Taken 02/07/22] donepezil 10 mg tablet 20 mg PO DAILY 01/09/22 [History Last Taken 02/07/22] quetiapine 200 mg tablet (Seroquel) 200 mg PO DAILY 01/09/22 [History Last Taken 02/07/22] Allergy/AdvReac Type Severity Reaction Status Date / Time acetaminophen [From Percocet] Allergy I GET Verified 02/08/22 09:22 GOOFY iodine Allergy Itching Verified 02/08/22 09:22 oxycodone [From Percocet] Allergy I GET Verified 02/08/22 09:22 GOOFY Surgical History History of hernia repair (~05/2017) Hx of CABG (~10/09/00) Social History Smoking Status: Former smoker ROS Constitutional Constitutional: Reports chills, fatigue and weakness; Denies anorexia Eyes Eyes: Denies change in vision ENT HEENT: Denies dysphagia, epistaxis, headache(s), nasal congestion, nasal di scharge, sinus pressure or sore throat Cardiovascular Cardiovascular: Denies chest pain, dyspnea on exertion, edema, lightheadedness, orthopnea, palpitations, paroxysmal nocturnal dyspnea, rapid heart rate or syncope Respiratory/Chest Respiratory/Chest: Reports cough and productive cough; Denies dyspnea, hemoptysis, shortness of breath at rest, shortness of breath with exertion or wheezing Gastrointestinal Gastrointestinal: Denies abdominal pain, coffee ground emesis, diarrhea, nausea or vomiting Genitourinary Genitourinary: Denies burning urination, dysuria or urinary frequency Musculoskeletal Musculoskeletal: Denies arthralgias Neurologic Neurologic: Denies confusion, dizziness, focal weakness, headache(s), seizure- like activity, seizures or syncope Psychiatric Psychiatric: Denies anxiety Hematologic/Lymphatic Hematologic/Lymphatic: Denies anemia Vital Signs Vital Signs Vital Signs: 02/08/22 09:23 02/08/22 09:32 Temperature 98 F Temperature Source Oral Pulse Rate 72 Respiratory Rate 18 Respiratory Pattern Normal Blood Pressure 113/60 Blood Pressure Mean 77 Pulse Ox 88 Oxygen Delivery Method Room Air Weight Weight: 176 lb 12.972 oz Body Mass Index (BMI) 25.3 Physical Exam Const alert and oriented x3 Orientation / Consciousness: lethargic HEENT normocephalic, head/scalp atraumatic and hearing grossly normal bilaterally HEENT Narrative: dry oral mucosal membranes Eyes PERRL and EOMs intact bilaterally Neck no lymphadenopathy and supple Resp Resp Narrative: Mildly diminished breath sounds bibasally. No wheezes or crackles. On room air. Cardio regular rate, regular rhythm, S1 normal heart sound, S2 normal heart sound and no murmurs GI normal to inspection, nondistended, normoactive bowel sounds, soft to palpation, non-tender and non-distended Extremity normal to inspection, full ROM and no clubbing, cyanosis or edema Neuro oriented x3, CN's II-XII intact bilaterally, moves all extremities and no focal motor deficits Sensorium / Orientation: awake Motor Exam: strength 5/5 throughout Psych Psych Narrative: flat affect Results Lab / Micro Data Result Diagrams: 02/08/22 09:40 02/08/22 09:40 Labs: Laboratory Results - last 24 hr 02/08/22 09:40: WBC 3.8 L, RBC 4.23 L, Hgb 12.0 L, Hct 38.0 L, MCV 89.8, MCH 28.4, MCHC 31.6 L, RDW Std Deviation 46.1 H, RDW Coeff of Emryl 14.1, Plt Count 90 L, MPV 10.2, Immature Gran % (Auto) 0.300, Neut % (Auto) 66.5, Lymph % (Auto) 25.6, [place] % (Auto) 6.8, Eos % (Auto) 0.3, Baso % (Auto) 0.5, Absolute Neuts (auto) 2.6, Absolute Lymphs (auto) 0.98, Nucleated RBC % 0, Differential Comment SCANNED, Platelet Estimate MOD DEC 02/08/22 09:40: Sodium 141, Potassium 3.3 L, Chloride 106, Carbon Dioxide 30.0, Anion Gap 5, BUN 26 H, Creatinine 1.31 H, Estim Creat Clear Calc 41.02, Est GFR (MDRD) Af Amer 67, Est GFR (MDRD) Non-Af 55 L, BUN/Creatinine Ratio 19.8, Glucose 133 H, Calcium 9.5, Total Bilirubin 0.70, AST 41 H, ALT 13 L, Alkaline Phosphatase 48, Troponin I High Sens 47, Total Protein 7.2, Albumin 3.4, Globulin 3.8, Albumin/Globulin Ratio 0.9 02/08/22 09:40: B-Natriuretic Peptide 164.8 H Micro: Microbiology 02/08/22 10:20 Mucosa - Nose Influenza Types A,B Direct FA ([facility]) - Final Influenzae A Radiology Impression Brain CT 02/08/22 10:12 IMPRESSION: Chronic involutional changes of the brain. Electronically Signed: Brandon Kaplan MD at 10:42 EST , Chest X-Ray 02/08/22 10:12 IMPRESSION: Stable increased interstitial markings suggestive of chronic scarring. Prior CABG. Electronically Signed: Brandon Kaplan MD at 10:58 EST , Pelvis X-Ray 02/08/22 10:20 IMPRESSION: Degenerative changes. No fracture is seen. Electronically Signed: Brandon Kaplan MD at 10:59 EST , Assessment & Plan Assessment/Plan (1) Debility: (2) Influenza A: PLAN: Plan #Debility and mechanical falls due to influenza infection * admit to med surg * consult PT/OT * fall precautions * hydrate gently with IVF * #Influenza A infection * tested positive for influenza A. says she had a cold last week * started on tamiflu in the ED; will continue. * breathing treatment with bronchodilators * give oxygen and titrate to maintain sats>90% * #Hypokalemia: potassium is 3.3. Will replace and trend #Urinalysis: * urine showed 1+ bacteria.In light of worsening weakness and debility, will treat for UTI, and get urine cultures. * Start on IV ceftriaxone. * #Hypotension: BP is 98/57. Hydrate with IVF and trend BP #Hypoxia * he was saturating at 88% on room air, and required 2L of oxygen to maintain sats >90% * likely due to influenza infection * tirate oxygen to maintain sats .90% * breathing treatment with bronchodilators * * #Hypertension: hold atenolol due to hypotension #Type 2 diabetes mellitus: On metformin. Insulin sliding scale. Accu-Cheks ACH S. #CAD s/p CABG: Stable #Thrombocytopenia * plateles are 90. Will monitor and trend. If it drops some more, hold lovenox * #Alzheimer's dementia: on memantine and donepezil DVT prophylaxis; lovenox Code status; DNRCCA no intubation * Patient and counseled extensively about different types of CODE STATUS including full code, DNR CCA and DNR CCA. Patient elects to be DNRCCA no intubation. * Total abmc-wr-qxvd time 16 minutes. Charges/Coding Visit Charges Inpatient E&M: 31006 Init Hosp L3 Procedures Hospitalists Procedures: 01254 Advncd Care Plan 30 Min
[2022-02-08 12:22] LABS: Color, Urine Yellow (Yellow); Glucose, Dipstick Normal (Normal); Ketone-Dipstick Negative (Negative); Leukocyte Esterase-Dipstick Negative /ul (Negative); Nitrite-Dipstick Negative (Negative); Occult Blood-Urine 150 /ul (Negative); Protein-Dipstick 30 mg/dl (Negative); Specific Gravity, Urine 1.025 (1.002-1.030); Urine Bilirubin Dipstick Negative (Negative); Urine Clarity Clear (Clear); Urine Urobilinogen Normal (Normal)
[2022-02-08] MEDS: Potassium Chloride Oral Tablet 20 MEQ 40 MEQ PO (12:24)
[2022-02-08] MEDS: Oseltamivir Phosphate 75 MG Capsule PO (12:24)
[2022-02-08 12:38] LABS: Red Blood Cells-Urine 0-5 SEEN /hpf (0-5); Squamous Epithelial Cells - UA 0-5 SEEN /hpf (0-5); White Blood Cells 0-5 SEEN /hpf (0-5)
[2022-02-08 12:39] LABS: Bacteria 1+ /hpf (None Seen); Mucous, Urine 1+ /hpf (<or=2+)
[2022-02-08] MEDS: 0.9% Normal Saline 1,000 ML 125 ML IV ×2 (15:10→23:12)
[2022-02-08 16:26] LABS: Bedside Glucose 103 mg/dL (74-106)
[2022-02-08] MEDS: Ipratropium/Albuterol Sulfate 3 ML AMPUL.NEB INHALATION (20:12)
[2022-02-08] MEDS: Menthol/Lanolin/Calamine/Znox 113 GM Tube 1 APPLIC TOPICAL (21:35)
[2022-02-08] MEDS: Donepezil HCl 10 MG Tablet 20 MG PO (21:35)
[2022-02-08] MEDS: QUEtiapine 100 MG Tablet 200 MG PO (21:35)
[2022-02-08] MEDS: Atorvastatin Calcium 10 MG Tablet PO (21:35)
[2022-02-08] MEDS: Oseltamivir Phosphate 30 MG Capsule PO (21:35)
[2022-02-08 22:06] LABS: Bedside Glucose 100 mg/dL (74-106)
[2022-02-09] VITALS (13 sets, daily range): BP systolic 96–122; BP diastolic 55–98; PULSE 64–86; RESP 17–24; TEMP 36.8–37.1; O2SAT 84–98
[2022-02-09 06:11] LABS: Bedside Glucose 101 mg/dL (74-106)
[2022-02-09] MEDS: Ipratropium/Albuterol Sulfate 3 ML AMPUL.NEB INHALATION ×4 (06:57→19:15)
[2022-02-09 07:20] LABS: Absolute Lymphocyte Count 1.08 X10^3/uL (0.83-4.51); Absolute Neutrophil Count 1.9 X10^3/uL (2.0-7.7); Basophil# 0.01 X10^3/uL; Basophil% 0.3 % (0-1); Eosinophil# 0.05 X10^3/uL; Eosinophils% 1.5 % (0-5); Hematocrit 35.2 % (40-54); Hemoglobin 11.5 g/dL (13.0-16.5); Lymphocyte # 1.08 X10^3/ul (0.83-4.51); Mean Corp Hgb Conc 32.7 g/dL (32-36); Mean Corpuscular Hgb 28.8 pg (27.0-32.0); Mean Corpuscular Volume 88.2 fL (80-94); Monocyte# 0.32 X10^3/uL; Monocyte% 9.5 % (0-10); NRBC Flagged by Analyzer 0 % (0-5); Neutrophil # 1.91 X10^3/uL (2.7-7.7); Neutrophil % 56.4 % (47-70); POSITIVE COUNT YES; Platelet Count 85 K/mm3 (150-450); RBC Distribution Width CV 13.9 % (11.6-14.6); Red Blood Count 3.99 M/mm3 (4.6-6.2); White Blood Count 3.4 K/mm3 (4.4-11.0)
[2022-02-09 07:47] LABS: Anion Gap 6 (5-15); BUN 20 mg/dL (7-18); BUN/Creat Ratio 21.1 RATIO (10-20); Chloride 107 mmol/L (98-107); Creatinine, Serum 0.95 mg/dL (0.70-1.30); EST Glomerular Filtration Rate 80 mL/min (>60); Est Glom Filt Rate - Afr Amer 97 mL/min (>60); Estimated Creatinine Clearance 56.56 ml/min; Glucose 92 mg/dL (74-106); Potassium 3.5 mmol/L (3.5-5.1); Sodium Level 140 mmol/L (136-145)
[2022-02-09] MEDS: metFORMIN HCl 1,000 MG Tablet 1000 MG PO (09:34)
[2022-02-09] MEDS: Memantine Hydrochloride 5 MG Tablet PO (09:34)
[2022-02-09] MEDS: Oseltamivir Phosphate 30 MG Capsule PO ×2 (09:34→21:01)
[2022-02-09] MEDS: Menthol/Lanolin/Calamine/Znox 113 GM Tube 1 APPLIC TOPICAL ×2 (09:38→21:00)
[2022-02-09 11:21] LABS: Bedside Glucose 89 mg/dL (74-106)
--- NOTE | 2022-02-09 12:44 | PN.HOSP_ITS ---
Subjective Subjective Patient seen and examined. He was having some chills this morning, but had no other active complaints. He is on 3L of oxygen. REview of systems is otherwise negative. Objective Data Objective Data Vital Signs: Vital Signs Temp Pulse Resp BP Pulse Ox O2 Del Method O2 Flow Rate 98.2 F 68 22 H 102/59 L 95 Nasal Cannula 3 02/09/22 08:00 02/09/22 11:09 02/09/22 11:09 02/09/22 08:00 02/09/22 08:00 02/09/22 11:09 02/09/22 11:09 Oxygen Flow Rate (L/min) 3 Oxygen Delivery Method Nasal Cannula Weight: 172 lb Body Mass Index (BMI) 24.7 Intake & Output: Intake and Output for Last 24 Hours 02/07/22 02/08/22 02/09/22 23:59 23:59 23:59 Intake Total 1740 / 1740 1060 / 1060 Balance 1740 / 1740 1060 / 1060 Lab / Micro Data Result Diagrams: 02/09/22 06:25 02/09/22 06:25 Labs: Laboratory Results - last 24 hr 02/08/22 16:03: POC Glucose 103 02/08/22 21:31: POC Glucose 100 02/09/22 05:49: POC Glucose 101 02/09/22 06:25: WBC 3.4 L, RBC 3.99 L, Hgb 11.5 L, Hct 35.2 L, MCV 88.2, MCH 28.8, MCHC 32.7, RDW Std Deviation 45.0 H, RDW Coeff of Meryl 13.9, Plt Count 85 L , MPV 10.0, Immature Gran % (Auto) 0.300, Neut % (Auto) 56.4, Lymph % (Auto) 32.0, Harper % (Auto) 9.5, Eos % (Auto) 1.5, Baso % (Auto) 0.3, Absolute Neuts (auto) 1.9 L, Absolute Lymphs (auto) 1.08, Nucleated RBC % 0 02/09/22 06:25: Sodium 140, Potassium 3.5, Chloride 107, Carbon Dioxide 27.0, Anion Gap 6, BUN 20 H, Creatinine 0.95, Estim Creat Clear Calc 56.56, Est GFR (MDRD) Af Amer 97, Est GFR (MDRD) Non-Af 80, BUN/Creatinine Ratio 21.1 H, Glucose 92, Calcium 9.0 02/09/22 11:00: POC Glucose 89 Micro: Microbiology 02/08/22 11:32 Nasal Secretion SARS-CoV-2 Antigen (Rapid) - Final 02/08/22 10:20 Mucosa - Nose Influenza Types A,B Direct FA ([facility]) - Final Influenzae A Physical Exam Const alert, oriented x3 and no apparent distress HEENT normocephalic, head/scalp atraumatic and hearing grossly normal bilaterally Head and Scalp: normocephalic Mouth: oral and palatal mucosa normal Eyes PERRL and EOMs intact bilaterally Neck no lymphadenopathy and supple Resp Resp Narrative: Mildly diminished breath sounds bibasally. No wheezes or crackles. On room air. Cardio regular rate, regular rhythm, S1 normal heart sound, S2 normal heart sound and no murmurs GI normal to inspection, nondistended, normoactive bowel sounds, soft to palpation, non-tender and non-distended Extremity normal to inspection, full ROM and no clubbing, cyanosis or edema Neuro oriented x3, CN's II-XII intact bilaterally, moves all extremities and no focal motor deficits Sensorium / Orientation: awake Motor Exam: strength 5/5 throughout Psych affect normal Assessment & Plan Assessment/Plan (1) Debility: (2) Influenza A: PLAN: Plan #Debility and mechanical falls due to influenza infection * PT/OT on boarrd * fall precautions * * #Influenza A infection * tested positive for influenza A. says she had a cold last week * on tamiflu * breathing treatment with bronchodilators * give oxygen and titrate to maintain sats>90% * #Hypokalemia: resolved #UTI: on IV ceftriaxone. Urine cultures pending * #Hypotension: resolved. #Hypoxia due to influenza infection * he was saturating at 88% on room air, and required 2L of oxygen to maintain sats >90% * likely due to influenza infection * titrate oxygen to maintain sats .90% * breathing treatment with bronchodilators * * #Hypertension: hold atenolol due to hypotension #Type 2 diabetes mellitus: On metformin. Insulin sliding scale. Accu-Cheks ACH S. #CAD s/p CABG: Stable #Thrombocytopenia * plateles are 85 today. Will monitor and trend. * dc lovenox * #Alzheimer's dementia: on memantine and donepezil DVT prophylaxis; lovenox Code status; DNRCCA no intubation * DIsposition: will benefit from placement; unable to care for him Charges/Coding Visit Charges Inpatient E&M: 19902 Subs Hosp L2
--- NOTE | 2022-02-09 15:00 | CASEMGMT ---
SULTANA NUNEZ DC Planning Assessment: Face to Face with patient for initial transition planning/care coordination assessment. Pt alert but confused. Pt's and daughter Lily at bedside and agreeable to participating in assessment. SULTANA NUNEZ introduced self and role at [facility], voices understanding. Care providers, pharmacy, and demographics verified. PCP: Dr. Adler Specialists: Ranulfo Pulido for macular degeneration, Dr. Tay (cardiology) Preferred Pharmacy: [facility] Insurance: MCR A/B, MMO Prescription Benefit: Yes LNOK: Lesly Living Arrangements: Pt currently lives with his in a 2 story home with a first floor set-up with 2 steps to enter. ADLs: Pt completed ADLS with some assistance from his . Pt with dementia and spends most of his time in the chair watching TV. Pt's handles all housekeeping tasks. Transportation: Pt's drives and transports pt when needed. DME: grab bars in the shower, denies other DME HHC: Had in the past postoperatively. Unable to recall the provider. Pt not active with HH at this time. SNF: pt has been to [facility] in the past. Plan: Pt's states she is unable to continue to care for pt. States she is undergoing tx for breast CA and cannot lift pt when he falls. States she has had to call EMS multiple times to help lift pt from the floor. Pt's states she is interested in both skilled and intermodal truck driver placement. List of SNF facilities from [facility] including quality data, resource use, and consistent with preferred geographic area were provided to pt's . Facilities with a memory care unit were indicated to pt's as requested. Pt's to review the list and follow-up on Friday regarding choice. Aura Eaton RN CM
[2022-02-09 17:16] LABS: Bedside Glucose 101 mg/dL (74-106)
[2022-02-09] MEDS: Loperamide 2 MG Capsule PO (18:19)
[2022-02-09] MEDS: Donepezil HCl 10 MG Tablet 20 MG PO (21:00)
[2022-02-09] MEDS: Atenolol 25 MG Tablet PO (21:00)
[2022-02-09] MEDS: QUEtiapine 100 MG Tablet 200 MG PO (21:01)
[2022-02-09] MEDS: Atorvastatin Calcium 10 MG Tablet PO (21:01)
[2022-02-09 21:26] LABS: Bedside Glucose 109 mg/dL (74-106)
[2022-02-10] VITALS (12 sets, daily range): BP systolic 100–155; BP diastolic 49–100; PULSE 62–82; RESP 16–22; TEMP 36.3–36.9; O2SAT 94–100
[2022-02-10 06:32] LABS: Absolute Lymphocyte Count 0.76 X10^3/uL (0.83-4.51); Absolute Neutrophil Count 1.2 X10^3/uL (2.0-7.7); Basophil# 0.01 X10^3/uL; Basophil% 0.5 % (0-1); Eosinophil# 0.04 X10^3/uL; Eosinophils% 1.9 % (0-5); Hematocrit 33.6 % (40-54); Hemoglobin 10.9 g/dL (13.0-16.5); Lymphocyte # 0.76 X10^3/ul (0.83-4.51); Lymphocyte % 35.3 % (19-41); Mean Corp Hgb Conc 32.4 g/dL (32-36); Mean Corpuscular Hgb 28.3 pg (27.0-32.0); Mean Corpuscular Volume 87.3 fL (80-94); Monocyte# 0.18 X10^3/uL; Monocyte% 8.4 % (0-10); NRBC Flagged by Analyzer 0 % (0-5); Neutrophil # 1.15 X10^3/uL (2.7-7.7); Neutrophil % 53.4 % (47-70); POSITIVE COUNT YES; Platelet Count 83 K/mm3 (150-450); RBC Distribution Width CV 13.6 % (11.6-14.6); RBC Distribution Width SD 43.3 fl (35.1-43.9); Red Blood Count 3.85 M/mm3 (4.6-6.2); White Blood Count 2.2 K/mm3 (4.4-11.0)
[2022-02-10 06:42] LABS: Anion Gap 6 (5-15); BUN 16 mg/dL (7-18); BUN/Creat Ratio 20.6 RATIO (10-20); Calcium,Total 9.2 mg/dL (8.5-10.1); Chloride 106 mmol/L (98-107); Creatinine, Serum 0.78 mg/dL (0.70-1.30); EST Glomerular Filtration Rate 101 mL/min (>60); Est Glom Filt Rate - Afr Amer 122 mL/min (>60); Estimated Creatinine Clearance 53.74 ml/min; Glucose 102 mg/dL (74-106); Potassium 3.8 mmol/L (3.5-5.1); Sodium Level 138 mmol/L (136-145)
[2022-02-10] MEDS: Ipratropium/Albuterol Sulfate 3 ML AMPUL.NEB INHALATION ×4 (07:13→19:42)
[2022-02-10 07:30] LABS: Bedside Glucose 101 mg/dL (74-106)
[2022-02-10] MEDS: Oseltamivir Phosphate 30 MG Capsule PO ×2 (09:05→21:09)
[2022-02-10] MEDS: metFORMIN HCl 1,000 MG Tablet 1000 MG PO (09:05)
[2022-02-10] MEDS: Memantine Hydrochloride 5 MG Tablet PO (09:05)
[2022-02-10] MEDS: Menthol/Lanolin/Calamine/Znox 113 GM Tube 1 APPLIC TOPICAL ×2 (09:06→21:10)
[2022-02-10 11:55] LABS: Bedside Glucose 126 mg/dL (74-106)
--- NOTE | 2022-02-10 13:10 | PN.HOSP_ITS ---
Subjective Subjective Patient seen and examined. HE has no complaints and had an uneventful night. Review of systems is otherwise negative. Objective Data Objective Data Vital Signs: Vital Signs Temp Pulse Resp BP Pulse Ox O2 Del Method O2 Flow Rate 98.3 F 82 16 100/70 97 Nasal Cannula 2 02/10/22 10:10 02/10/22 10:31 02/10/22 10:31 02/10/22 10:10 02/10/22 10:10 02/10/22 10:10 02/10/22 10:10 Oxygen Flow Rate (L/min) 2 Oxygen Delivery Method Nasal Cannula Weight: 172 lb Body Mass Index (BMI) 24.7 Intake & Output: Intake and Output for Last 24 Hours 02/08/22 02/09/22 02/10/22 23:59 23:59 23:59 Intake Total 1740 / 1740 1060 / 1060 200 / 200 Balance 1740 / 1740 1060 / 1060 200 / 200 Lab / Micro Data Result Diagrams: 02/10/22 05:40 02/10/22 05:40 Labs: Laboratory Results - last 24 hr 02/09/22 16:50: POC Glucose 101 02/09/22 20:59: POC Glucose 109 H 02/10/22 05:40: WBC 2.2 L, RBC 3.85 L, Hgb 10.9 L, Hct 33.6 L, MCV 87.3, MCH 28.3, MCHC 32.4, RDW Std Deviation 43.3, RDW Coeff of Meryl 13.6, Plt Count 83 L, MPV 10.0, Immature Gran % (Auto) 0.500, Neut % (Auto) 53.4, Lymph % (Auto) 35.3, [place] % (Auto) 8.4, Eos % (Auto) 1.9, Baso % (Auto) 0.5, Absolute Neuts (auto) 1.2 L, Absolute Lymphs (auto) 0.76 L, Nucleated RBC % 0 02/10/22 05:40: Sodium 138, Potassium 3.8, Chloride 106, Carbon Dioxide 26.0, Anion Gap 6, BUN 16, Creatinine 0.78, Estim Creat Clear Calc 53.74, Est GFR (MDRD) Af Amer 122, Est GFR (MDRD) Non-Af 101, BUN/Creatinine Ratio 20.6 H, Glucose 102, Calcium 9.2 02/10/22 06:42: POC Glucose 101 02/10/22 11:28: POC Glucose 126 H Micro: Microbiology 02/09/22 10:55 Urine, Clean Catch Urine Culture - Final Mixed Gram Positive Organisms 02/08/22 11:32 Nasal Secretion SARS-CoV-2 Antigen (Rapid) - Final 02/08/22 10:20 Mucosa - Nose Influenza Types A,B Direct FA ([facility]) - Final Influenzae A Physical Exam Const alert, oriented x3 and no apparent distress HEENT normocephalic, head/scalp atraumatic, hearing grossly normal bilaterally and moist oral mucous membranes Head and Scalp: normocephalic Mouth: oral and palatal mucosa normal Eyes PERRL and EOMs intact bilaterally Neck no lymphadenopathy and supple Resp Resp Narrative: Mildly diminished breath sounds bibasally. No wheezes or crackles. On 2L of oxygen Cardio regular rate, regular rhythm, S1 normal heart sound, S2 normal heart sound and no murmurs GI normal to inspection, nondistended, normoactive bowel sounds, soft to palpation, non-tender and non-distended Extremity normal to inspection, full ROM and no clubbing, cyanosis or edema Neuro oriented x3, CN's II-XII intact bilaterally, moves all extremities and no focal motor deficits Sensorium / Orientation: awake Motor Exam: strength 5/5 throughout Psych affect normal Psych Narrative: flat affect Assessment & Plan Assessment/Plan (1) Debility: (2) Influenza A: PLAN: Plan #Debility and mechanical falls due to influenza infection * PT/OT on boarrd * fall precautions * #Influenza A infection * tested positive for influenza A. says she had a cold last week * on tamiflu * breathing treatment with bronchodilators * give oxygen and titrate to maintain sats>90% * on 2L of oxygen * #Hypokalemia: resolved #UTI: on IV ceftriaxone. Urine cultures pending * #Hypotension: resolved. #Hypoxia due to influenza infection * still on 2L of oxygen * likely due to influenza infection * titrate oxygen to maintain sats .90% * breathing treatment with bronchodilators * * #Hypertension: hold atenolol due to hypotension #Type 2 diabetes mellitus: On metformin. Insulin sliding scale. Accu-Cheks ACH S. #CAD s/p CABG: Stable #Thrombocytopenia * plateles are 83 today. Will monitor and trend. * dc lovenox * #Alzheimer's dementia: on memantine and donepezil DVT prophylaxis; SCDs. Code status; DNRCCA no intubation * DIsposition: will benefit from placement; unable to care for him Charges/Coding Visit Charges Inpatient E&M: 35633 Subs Hosp L2
[2022-02-10 17:00] LABS: Bedside Glucose 115 mg/dL (74-106)
[2022-02-10] MEDS: QUEtiapine 100 MG Tablet 200 MG PO (21:09)
[2022-02-10] MEDS: Atenolol 25 MG Tablet PO (21:09)
[2022-02-10] MEDS: Donepezil HCl 10 MG Tablet 20 MG PO (21:09)
[2022-02-10] MEDS: Atorvastatin Calcium 10 MG Tablet PO (21:09)
[2022-02-10 21:35] LABS: Bedside Glucose 133 mg/dL (74-106)
[2022-02-11] VITALS (11 sets, daily range): BP systolic 100–155; BP diastolic 51–100; PULSE 51–69; RESP 16–20; TEMP 36.3–36.7; O2SAT 93–98
[2022-02-11 06:46] LABS: Absolute Lymphocyte Count 0.88 X10^3/uL (0.83-4.51); Basophil# 0.02 X10^3/uL; Basophil% 0.9 % (0-1); Eosinophil# 0.09 X10^3/uL; Eosinophils% 4.1 % (0-5); Hematocrit 33.9 % (40-54); Lymphocyte # 0.88 X10^3/ul (0.83-4.51); Lymphocyte % 39.8 % (19-41); Mean Corp Hgb Conc 32.4 g/dL (32-36); Mean Corpuscular Hgb 28.3 pg (27.0-32.0); Mean Corpuscular Volume 87.1 fL (80-94); Mean Platelet Vol. 9.5 fl (6.2-12.0); Monocyte# 0.23 X10^3/uL; Monocyte% 10.4 % (0-10); NRBC Flagged by Analyzer 0 % (0-5); Neutrophil # 0.98 X10^3/uL (2.7-7.7); Neutrophil % 44.3 % (47-70); POSITIVE COUNT YES; POSITIVE DIFFERENTIAL YES; Platelet Count 90 K/mm3 (150-450); RBC Distribution Width CV 13.4 % (11.6-14.6); RBC Distribution Width SD 42.5 fl (35.1-43.9); Red Blood Count 3.89 M/mm3 (4.6-6.2); White Blood Count 2.2 K/mm3 (4.4-11.0)
[2022-02-11] MEDS: Ipratropium/Albuterol Sulfate 3 ML AMPUL.NEB INHALATION ×4 (06:52→19:10)
[2022-02-11 06:58] LABS: Anion Gap 6 (5-15); BUN 15 mg/dL (7-18); BUN/Creat Ratio 20.2 RATIO (10-20); Calcium,Total 9.5 mg/dL (8.5-10.1); Chloride 107 mmol/L (98-107); Creatinine, Serum 0.74 mg/dL (0.70-1.30); EST Glomerular Filtration Rate 106 mL/min (>60); Est Glom Filt Rate - Afr Amer 128 mL/min (>60); Estimated Creatinine Clearance 53.74 ml/min; Glucose 106 mg/dL (74-106); Potassium 3.7 mmol/L (3.5-5.1); Sodium Level 139 mmol/L (136-145)
[2022-02-11 07:10] LABS: Bedside Glucose 107 mg/dL (74-106)
[2022-02-11 07:22] LABS: Differential Indicated SCAN CRITERIA MET
[2022-02-11] MEDS: metFORMIN HCl 1,000 MG Tablet 1000 MG PO (08:18)
[2022-02-11 08:28] LABS: Platelet Estimate MOD DEC (ADEQ)
[2022-02-11] MEDS: Memantine Hydrochloride 5 MG Tablet PO (10:14)
[2022-02-11] MEDS: Menthol/Lanolin/Calamine/Znox 113 GM Tube 1 APPLIC TOPICAL ×2 (10:17→21:12)
--- NOTE | 2022-02-11 10:36 | CASEMGMT ---
Social Work SW met with pt in family waiting room due to pt in Flu precautions and not oriented. SW reviewed SNF list previously provided with pt . Pt overwhelmed, concerned with cashing in CDs and other assets. SW explained pt would be going to SNF skilled which insurance would cover for a period of time. SW explained if pt needing LTC that has time and can collaborate with SW at long-term to plan. Pt still high anxiety, worry over applying for medicaid and the state taking all marital wealth for care. SW explained this is not exactly how things are done and that pt would benefit from working with SW at SNF as they have good experience handling situations such as this. understanding that pt will go to SNF skilled from the hospital and more at ease knowing big plans do not need to be completed immediately. From SNF list provided named [facility] as [facility] preference and [facility]. SW informed [facility]. [facility] discharge assist. of pt/family choice. Halina to send referral. PLAN: Hilary, spending acceptance. Terri Alvarez, HEMANT
--- NOTE | 2022-02-11 10:45 | CASEMGMT ---
Addendum entered by Halina Sweet 02/11/22 10:47: Referral sent to [facility] Original Note: Discharge Cash Shortage Investigator This typewriter tester [facility] No beds available. DUNG Murray notified and second choice is needed. Kimmy CORTES Senior Windows Systems Administrator
--- NOTE | 2022-02-11 11:05 | PCM.PN.HOSP ---
Subjective Subjective Follow-up on hypoxia/influenza A/ Hypokalemia: Patient was seen and examined. He is on 2 L of oxygen. Denies any fever or chills or diarrhea or nausea or vomiting. Objective Data Objective Data Vital Signs: Vital Signs Temp Pulse Resp BP Pulse Ox O2 Del Method O2 Flow Rate 98.1 F 56 L 18 111/63 97 Nasal Cannula 3 02/11/22 08:56 02/11/22 08:56 02/11/22 08:56 02/11/22 08:56 02/11/22 08:56 02/11/22 10:18 02/11/22 10:18 Oxygen Flow Rate (L/min) 3 Oxygen Delivery Method Nasal Cannula Weight: 78.018 kg Body Mass Index (BMI) 24.7 Intake & Output: Intake and Output for Last 24 Hours 02/09/22 02/10/22 02/11/22 23:59 23:59 23:59 Intake Total 1060 / 1060 200 / 500 400 / 400 Balance 1060 / 1060 200 / 500 400 / 400 Lab / Micro Data Result Diagrams: 02/11/22 06:20 02/11/22 06:20 Labs: Laboratory Results - last 24 hr 02/10/22 11:28: POC Glucose 126 H 02/10/22 16:16: POC Glucose 115 H 02/10/22 21:08: POC Glucose 133 H 02/11/22 06:20: WBC 2.2 L, RBC 3.89 L, Hgb 11.0 L, Hct 33.9 L, MCV 87.1, MCH 28.3, MCHC 32.4, RDW Std Deviation 42.5, RDW Coeff of Meryl 13.4, Plt Count 90 L, MPV 9.5, Immature Gran % (Auto) 0.500, Neut % (Auto) 44.3 L, Lymph % (Auto) 39.8, [place] % (Auto) 10.4 H, Eos % (Auto) 4.1, Baso % (Auto) 0.9, Absolute Neuts (auto) 1.0 L, Absolute Lymphs (auto) 0.88, Nucleated RBC % 0, Differential Comment COMMENT, Platelet Estimate MOD DEC 02/11/22 06:20: Sodium 139, Potassium 3.7, Chloride 107, Carbon Dioxide 26.0, Anion Gap 6, BUN 15, Creatinine 0.74, Estim Creat Clear Calc 53.74, Est GFR (MDRD) Af Amer 128, Est GFR (MDRD) Non-Af 106, BUN/Creatinine Ratio 20.2 H, Glucose 106, Calcium 9.5 02/11/22 06:48: POC Glucose 107 H Micro: Microbiology 02/09/22 10:55 Urine, Clean Catch Urine Culture - Final Mixed Gram Positive Organisms 02/08/22 11:32 Nasal Secretion SARS-CoV-2 Antigen (Rapid) - Final 02/08/22 10:20 Mucosa - Nose Influenza Types A,B Direct FA ([facility]) - Final Influenzae A Physical Exam Narrative Physical exam: General: Alert, Oriented x3, Cooperative, appears frail, on 2 L of oxygen HEENT: Atraumatic Oral: Moist Mucosa Neck: Supple Lungs: Diminished to auscultation, scattered wheezes Cardiovascular: HS I+II, regular, no murmurs Abdomen: Bowel Sounds Present, Soft, Non Tender Extremities: No edema Skin: No rashes, No breakdown Neurological: Grossly intact Psych/Mental Status: Appropriate Assessment & Plan Assessment/Plan (1) Debility: (2) Influenza A: PLAN: Plan 1. Acute hypoxia secondary to acute influenza A Patient is on 2 L of oxygen, continue to wean for SPO2 more than 94% Encourage use of incentive spirometer 2. Acute influenza A Continue on Tamiflu, breathing treatments 3. Debility/mechanical fall secondary to #1 PT/OT to evaluate and treat 4. Hypokalemia, resolved 5. Acute UTI ruled out, urine cultures showed mixed organisms likely contaminant Continue to monitor off antibiotics 6. Hypertension/CAD s/p CABG, controlled, continue on atenolol, atorvastatin 7.Type 2 diabetes mellitus, blood sugars fairly controlled, continue on metformin and insulin sliding scale with blood glucose checks 8. Pancytopenia, unclear etiology, appears to be stable in this admission, continue to trend Needs to be followed up in the outpatient 9. Dementia, continue Namenda, Aricept, Seroquel 10. DVT PPx- SCDs Charges/Coding Visit Charges Inpatient E&M: 95604 Subs Hosp L2
[2022-02-11] MEDS: Oseltamivir Phosphate 30 MG Capsule PO ×2 (11:40→21:12)
[2022-02-11 12:00] LABS: Bedside Glucose 132 mg/dL (74-106)
--- NOTE | 2022-02-11 15:05 | CASEMGMT ---
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 SW talked with , informed [facility] due to no beds and referral was sent to [facility]. SW shared [facility] not responded to referral yet but SW would update with news when it comes. shared third choice would be [facility] if [facility] cannot take pt. PLAN: [facility], pending acceptance. HEMANT Miller
[2022-02-11 16:45] LABS: Bedside Glucose 110 mg/dL (74-106)
[2022-02-11] MEDS: Glucerna Shake 120 ML LIQUID PO ×2 (18:13→21:12)
[2022-02-11] MEDS: QUEtiapine 100 MG Tablet 200 MG PO (21:11)
[2022-02-11] MEDS: Donepezil HCl 10 MG Tablet 20 MG PO (21:11)
[2022-02-11] MEDS: Atenolol 25 MG Tablet PO (21:12)
[2022-02-11] MEDS: Atorvastatin Calcium 10 MG Tablet PO (21:12)
[2022-02-11 22:50] LABS: Bedside Glucose 117 mg/dL (74-106)
[2022-02-12] VITALS (9 sets, daily range): BP systolic 102–124; BP diastolic 54–62; PULSE 59–79; RESP 16–20; TEMP 36.5–36.7; O2SAT 93–96
[2022-02-12 04:54] LABS: Absolute Lymphocyte Count 1.13 X10^3/uL (0.83-4.51); Absolute Neutrophil Count 1.3 X10^3/uL (2.0-7.7); Basophil# 0.01 X10^3/uL; Basophil% 0.4 % (0-1); Eosinophil# 0.09 X10^3/uL; Eosinophils% 3.2 % (0-5); Hematocrit 32.8 % (40-54); Hemoglobin 11.1 g/dL (13.0-16.5); Lymphocyte # 1.13 X10^3/ul (0.83-4.51); Lymphocyte % 40.5 % (19-41); Mean Corp Hgb Conc 33.8 g/dL (32-36); Mean Corpuscular Hgb 29.1 pg (27.0-32.0); Mean Corpuscular Volume 86.1 fL (80-94); Mean Platelet Vol. 9.5 fl (6.2-12.0); Monocyte# 0.24 X10^3/uL; Monocyte% 8.6 % (0-10); NRBC Flagged by Analyzer 0 % (0-5); Neutrophil # 1.32 X10^3/uL (2.7-7.7); Neutrophil % 47.3 % (47-70); Platelet Count 108 K/mm3 (150-450); RBC Distribution Width CV 13.4 % (11.6-14.6); Red Blood Count 3.81 M/mm3 (4.6-6.2); White Blood Count 2.8 K/mm3 (4.4-11.0)
[2022-02-12 05:19] LABS: ALB/GLOB Ratio 0.8 RATIO (0.9-2.4); AST(SGOT) 18 U/L (15-37); Alanine Aminotransfer ALT/SGPT 11 U/L (16-61); Albumin, Serum 2.7 g/dL (3.2-5.0); Alkaline Phosphatase 44 U/L (45-117); Anion Gap 4 (5-15); BUN 15 mg/dL (7-18); BUN/Creat Ratio 19.4 RATIO (10-20); Calcium,Total 9.6 mg/dL (8.5-10.1); Chloride 105 mmol/L (98-107); Creatinine, Serum 0.77 mg/dL (0.70-1.30); EST Glomerular Filtration Rate 101 mL/min (>60); Est Glom Filt Rate - Afr Amer 123 mL/min (>60); Estimated Creatinine Clearance 53.74 ml/min; Globulin 3.5 g/dL (2.2-4.2); Glucose 109 mg/dL (74-106); Potassium 3.9 mmol/L (3.5-5.1); Protein, Total 6.2 g/dL (6.4-8.2); Sodium Level 138 mmol/L (136-145)
[2022-02-12] MEDS: Ipratropium/Albuterol Sulfate 3 ML AMPUL.NEB INHALATION ×3 (07:38→20:23)
[2022-02-12] MEDS: metFORMIN HCl 1,000 MG Tablet 1000 MG PO (08:35)
--- NOTE | 2022-02-12 10:08 | CASEMGMT ---
Social Work SW called Christal at [facility] to check on referral. Christal in training, confused about traditional medicare and process for acceptance. Christal was under impresion pt would need precert. SW informed pt would not need precert for traditional medicare insurance. Christal spoke to superior at [facility] and then informed SW that pt could likely be accepted and that Christal would call back later this day with confirmation. DUNG asked for approximate time Christal would call back. Christal shared would call back around 1:30-2 to discuss pt case and accepting pt. Plan: [facility], pending acceptance HEMANT Miller
--- NOTE | 2022-02-12 10:45 | PCM.PN.HOSP ---
Subjective Subjective Follow-up on hypoxia/influenza A/ Hypokalemia: Patient was seen and examined. He denied any new complaints. Remains on 2 L of oxygen. No acute events overnight. Objective Data Objective Data Vital Signs: Vital Signs Temp Pulse Resp BP Pulse Ox O2 Del Method O2 Flow Rate 97.9 F 69 16 124/58 H 93 Nasal Cannula 2 02/12/22 08:23 02/12/22 08:23 02/12/22 08:23 02/12/22 08:23 02/12/22 09:19 02/12/22 09:19 02/12/22 09:19 Oxygen Flow Rate (L/min) 2 Oxygen Delivery Method Nasal Cannula Weight: 78.018 kg Body Mass Index (BMI) 24.7 Intake & Output: Intake and Output for Last 24 Hours 02/10/22 02/11/22 02/12/22 23:59 23:59 23:59 Intake Total 200 / 500 400 / 500 100 / 100 Balance 200 / 500 400 / 500 100 / 100 Lab / Micro Data Result Diagrams: 02/12/22 04:36 02/12/22 04:36 Labs: Laboratory Results - last 24 hr 02/11/22 11:38: POC Glucose 132 H 02/11/22 16:24: POC Glucose 110 H 02/11/22 21:10: POC Glucose 117 H 02/12/22 04:36: WBC 2.8 L, RBC 3.81 L, Hgb 11.1 L, Hct 32.8 L, MCV 86.1, MCH 29.1, MCHC 33.8, RDW Std Deviation 42.0, RDW Coeff of Meryl 13.4, Plt Count 108 L, MPV 9.5, Immature Gran % (Auto) 0.000, Neut % (Auto) 47.3, Lymph % (Auto) 40.5, [place] % (Auto) 8.6, Eos % (Auto) 3.2, Baso % (Auto) 0.4, Absolute Neuts (auto) 1.3 L, Absolute Lymphs (auto) 1.13, Nucleated RBC % 0 02/12/22 04:36: Sodium 138, Potassium 3.9, Chloride 105, Carbon Dioxide 29.0, Anion Gap 4 L, BUN 15, Creatinine 0.77, Estim Creat Clear Calc 53.74, Est GFR (MDRD) Af Amer 123, Est GFR (MDRD) Non-Af 101, BUN/Creatinine Ratio 19.4, Glucose 109 H, Calcium 9.6, Total Bilirubin 0.60, AST 18, ALT 11 L, Alkaline Phosphatase 44 L, Total Protein 6.2 L, Albumin 2.7 L, Globulin 3.5, Albumin/Globulin Ratio 0.8 L Micro: Microbiology 02/09/22 10:55 Urine, Clean Catch Urine Culture - Final Mixed Gram Positive Organisms 02/08/22 11:32 Nasal Secretion SARS-CoV-2 Antigen (Rapid) - Final 02/08/22 10:20 Mucosa - Nose Influenza Types A,B Direct FA (DAPHNE) - Final Influenzae A Physical Exam Narrative Physical exam: General: Alert, Oriented x3, Cooperative, appears frail, on 2 L of oxygen HEENT: Atraumatic Oral: Moist Mucosa Neck: Supple Lungs: Diminished to auscultation, scattered wheezes Cardiovascular: HS I+II, regular, no murmurs Abdomen: Bowel Sounds Present, Soft, Non Tender Extremities: No edema Skin: No rashes, No breakdown Neurological: Grossly intact Psych/Mental Status: Appropriate Assessment & Plan Assessment/Plan (1) Debility: (2) Influenza A: PLAN: Plan 1. Acute hypoxia secondary to acute influenza A, remains about the same Remains on 2 L of oxygen, continue to wean for SPO2 more than 94% Encourage use of incentive spirometer 2. Acute influenza A Continue on Tamiflu, breathing treatments 3. Debility/mechanical fall secondary to #1 PT/OT to evaluate and treat 4. Hypokalemia, resolved 5. Acute UTI ruled out, urine cultures showed mixed organisms likely contaminant Continue to monitor off antibiotics 6. Hypertension/CAD s/p CABG, controlled, continue on atenolol, atorvastatin 7.Type 2 diabetes mellitus, blood sugars fairly controlled, continue on metformin and insulin sliding scale with blood glucose checks 8. Pancytopenia, unclear etiology, appears to be stable in this admission, continue to trend Needs to be followed up in the outpatient 9. Dementia, continue Namenda, Aricept, Seroquel 10. DVT PPx- SCDs Disposition: Awaiting discharge to care home facility Charges/Coding Visit Charges Inpatient E&M: 68295 Subs Hosp L2
[2022-02-12] MEDS: Oseltamivir Phosphate 30 MG Capsule PO ×2 (10:57→20:57)
[2022-02-12] MEDS: Memantine Hydrochloride 5 MG Tablet PO (10:57)
[2022-02-12] MEDS: Menthol/Lanolin/Calamine/Znox 113 GM Tube 1 APPLIC TOPICAL ×2 (10:57→20:57)
--- NOTE | 2022-02-12 11:00 | CASEMGMT ---
Social Work Met with patient's today regarding questions about Medicaid. had many questions, as well as concern about saving assets which are in 's name and have been save for years to care for the when becomes ill. Answered questions as able, assisted in completing medicaid application for this patient though expresses understanding will have to pay some money down for to eventually qualify for Medicaid. Educated to spousal impoverishment clause with JFS and Medicaid, that the only way to know what patient's liability will be and how much money will need to be spent down to qualify for medicaid, will be to start the application process. Educated sometimes Elder Law attorneys are versed in division of assets for community spouse versus spouse in [place]. took down notes. Supportive listening and encouragement provided to who reports has been the primary caregiver to this patient. thanked this proposal writer for assistance. Note, this proposal writer did let know that could hold off on the medicaid application as plan is for skilled care under Medicare. reported desire to complete today, as wants to get things going and know what to expect moving forward. F[place]ed [place] to [phone], This proposal writer checked in with Terri LUCAS on [facility] for update on discharge planning. Updated who remains in agreement with [facility] and [facility] as second choice. [facility], but reports there are no beds are available at this time. Plan: Pending acceptance at [facility], to go skilled level of care under Medicare. -LIOR Mcbride, TIE TAMPER
[2022-02-12] MEDS: Glucerna Shake 120 ML LIQUID PO ×4 (11:01→21:00)
[2022-02-12 11:21] LABS: Bedside Glucose 103 mg/dL (74-106)
[2022-02-12 12:41] LABS: Bedside Glucose 97 mg/dL (74-106)
--- NOTE | 2022-02-12 14:25 | CASEMGMT ---
Social Work DUNG received phone call from Christal at [facility]. Christal shared able to accept pt tomorrow morning. SNF is short staffed and would not have enough staff to work on admitting new pt this night. DUNG updated Dr. Matias of plan. DUNG also called pt , Lesly to provide update on plan for pt. Lesly voiced understanding. PLAN: D/C to [facility] tomorrow HEMANT Miller
[2022-02-12 17:00] LABS: Bedside Glucose 110 mg/dL (74-106)
[2022-02-12] MEDS: Donepezil HCl 10 MG Tablet 20 MG PO (20:57)
[2022-02-12] MEDS: QUEtiapine 100 MG Tablet 200 MG PO (20:57)
[2022-02-12] MEDS: Atorvastatin Calcium 10 MG Tablet PO (20:57)
[2022-02-12] MEDS: Atenolol 25 MG Tablet PO (20:57)
[2022-02-12 21:26] LABS: Bedside Glucose 137 mg/dL (74-106)
[2022-02-13 03:42] VITALS: BP 109/56; PULSE 61; RESP 18; TEMP 36.6; O2SAT 94
[2022-02-13 06:25] LABS: Bedside Glucose 109 mg/dL (74-106)
[2022-02-13 08:54] VITALS: O2SAT 95
--- NOTE | 2022-02-13 09:58 | PCM.TXEXTCAR ---
Diet Diet Order/Speech Therapy: 02/08/22 12:48 Diet: Consistent Carb - Calorie Controlled Food consistency:: Regular Liquid Consistency:: Regular/Thin Diet Comments: fortified foods as able; softer foods d/t poor dentition How many daily calories?: 1800 calorie Routine Orders/Code Status Suppository Type: Dulcolax 10mg Suppository Frequency: Daily PRN O2 Liters per Minute: 2 O2 Frequency: Continuous Keep PO Greater than or Equal to (%): 94 Routine Lab Work: CBC (within 3 days) and - (CMP within 3 days) Code Status: DNRCC-A Wound(s) Coccyx: Wound Type: Pressure Injury Therapies Weight Bearing: Weight bearing as tolerated Physical Therapy: Eval and Treat Occupational Therapy: Eval and Treat Problem/Diagnosis (1) Debility: Status: Acute Code(s): R53.81 - Other malaise (2) Influenza A: Status: Acute Code(s): J10.1 - Influenza due to other identified influenza virus with other respiratory manifestations Plan 1. Acute hypoxia secondary to acute influenza A 2. Debility/mechanical fall secondary to #1 3. Hypokalemia 4. Hypertension 5. CAD s/p CABG 6.Type 2 diabetes mellitus 7. Pancytopenia 8. Dementia Allergies/Procedures Done in Hospital Allergies acetaminophen [From Percocet] Allergy (Verified 02/08/22 09:22) I GET GOOFY iodine Allergy (Verified 02/08/22 09:22) Itching oxycodone [From Percocet] Allergy (Verified 02/08/22 09:22) I GET GOOFY Procedures: None Type of Care/Length of Stay Estimated LOS: Convalescent Care Less Than 30 days Type of Care Needed: Skilled Rehab Potential: Good Prognosis: Good Additional Orders/Day of Discharge Day of Discharge: 02/13/22 Dietary and Speech Recommendations Dietitian Recommendations/Changes: Will continue 1800 nikolay consistent cho diet - softer foods d/t dentition Will order 4 oz glucerna shake 4x/day w/ medpass Will provide fortified foods w/ meals as able Rec Jose F bid for wound healing of coccyx if warranted Discharge Plan Admission Admit Date/Time: 02/08/22 13:19 Primary Reason for Your Visit: Acute hypoxia/Influenza A Attending Provider: Sarah Matias Primary Care Provider: Shailesh Adler Consulting Providers: Christen Infante Instructions Additional Instructions / Restrictions: Continue to encourage use of incentive spirometer Discharge Orders/Prescriptions Prescriptions: New ipratropium-albuterol 0.5 mg-3 mg(2.5 mg base)/3 mL Solution For Nebulization 3 ml inhalation Q4HWA.RT PRN (Reason: Shortness Of Breath Or Wheezing) Qty: 0 0RF guaifenesin 100 mg/5 mL Liquid 20 ml PO Q4H PRN PRN (Reason: COUGH) Qty: 0 0RF Glucerna 1.2 Nikolay 0.06-1.2 gram-kcal/mL Liquid 120 ml PO 4X/DAY Qty: 0 0RF menthol-zinc oxide [Calmoseptine] 0.44-20.6 % Ointment 1 applic topical BID Qty: 0 0RF Protocol: *Topical Application Instructions APPLICATION INSTRUCTIONS: affected area Continued nitroglycerin 0.4 mg tablet, sublingual 0.4 mg SUBLINGUAL Q5-15M PRN (Reason: chest pain) Qty: 90 6RF Rx Instructions: until response; do not exceed 3 doses per episode metformin 1,000 mg tablet 1,000 mg PO DAILY memantine 5 mg tablet 5 mg PO QAM donepezil 10 mg tablet 20 mg PO DAILY simvastatin 20 mg tablet 20 mg PO QHS Qty: 90 3RF quetiapine [Seroquel] 200 mg tablet 200 mg PO DAILY atenolol 25 mg tablet 25 mg PO QHS Qty: 90 3RF Referrals / Follow Up: Shailesh Adler MD [Primary Care Provider] - Disposition Disposition (needs filled in before D/C Order can be placed): Detention Facility
--- NOTE | 2022-02-13 10:04 | DS.PCM_ITS ---
Providers Date of Admission: 02/08/22 Date of Discharge: 02/13/22 Primary Care Physician: Dr. Shailesh Adler MD Reason For Visit: INFLUENZA A, DEBILITY, DEHYDRATION Diagnosis Discharge Diagnosis (1) Debility: Status: Acute Code(s): R53.81 - Other malaise (2) Influenza A: Status: Acute Code(s): J10.1 - Influenza due to other identified influenza virus with other respiratory manifestations Plan 1. Acute hypoxia secondary to acute influenza A 2. Debility/mechanical fall secondary to #1 3. Hypokalemia 4. Hypertension 5. CAD s/p CABG 6.Type 2 diabetes mellitus 7. Pancytopenia 8. Dementia Medications at Discharge Home Medications nitroglycerin 0.4 mg sublingual tablet 0.4 mg sublingual Q5-15M PRN chest pain #90 tabs 11/26/17 metformin 1,000 mg tablet 1,000 mg PO DAILY 08/14/18 memantine 5 mg tablet 5 mg PO QAM 06/05/20 simvastatin 20 mg tablet 20 mg PO QHS #90 tabs 06/27/21 atenolol 25 mg tablet 25 mg PO QHS #90 tabs 10/02/21 donepezil 10 mg tablet 20 mg PO DAILY 01/09/22 quetiapine 200 mg tablet (Seroquel) 200 mg PO DAILY 01/09/22 guaifenesin 100 mg/5 mL oral liquid 20 ml PO Q4H PRN PRN COUGH #0 mL 02/13/22 ipratropium 0.5 mg-albuterol 3 mg (2.5 mg base)/3 mL nebulization soln 3 ml inhalation Q4HWA.RT PRN Shortness Of Breath Or Wheezing #0 mL 02/13/22 menthol 0.44 %-zinc oxide 20.6 % topical ointment (Calmoseptine) 1 applic topical BID #0 grams 02/13/22 nutrition tx glu intol,lac-free,soy-fiber 0.06 gram-1.2 kcal/mL liquid (Glucerna 1.2 Evan) 120 ml PO 4X/DAY #0 mL 02/13/22 Hospital Course Operations None Procedures None Summary of Care Provided Minutes Spent on Discharge: 35 Hospital Course: 87 y/o male with PMHx of CAD, PAD, carotid artery stenosis, hypertension, dementia who comes in with generalized weakness, fever and cough. Patient's had been trying to get him into a intermediate facility. He felt a day before admission and was too weak to get up. On the day of admission, he fell while was in the bathroom. It was an unwitnessed fall and his believe he hit his head. Patient was brought to the emergency room, he was found to be hypoxic at 88% on room air. CT of the brain showed no acute intracranial process. Chest x-ray showed increased interstitial marking. COVID-19 rapid antigen testing was negative. Influenza A screen was positive. Patient was [facility] floor and managed conservatively on IV fluids, started on Tamiflu. He completed his Tamiflu course during this hospital stay. He was seen by PT and OT and skilled for discharge to intermediate facility. Social work/case management was consulted. Patient was discharged in a stable state. Physical Exam Narrative Physical exam: General: Alert, Oriented x3, Cooperative, appears frail, on 2 L of oxygen HEENT: Atraumatic Oral: Moist Mucosa Neck: Supple Lungs: Diminished to auscultation, scattered wheezes Cardiovascular: HS I+II, regular, no murmurs Abdomen: Bowel Sounds Present, Soft, Non Tender Extremities: No edema Skin: No rashes, No breakdown Neurological: Grossly intact Psych/Mental Status: Appropriate Weight / BMI Weight Weight: 78.018 kg Body Mass Index (BMI) 24.7 ABG / Lab / Microbiology Data Result Diagrams: 02/12/22 04:36 02/12/22 04:36 Laboratory: Laboratory Results - last 24 hr 02/12/22 06:22: POC Glucose 103 02/12/22 11:04: POC Glucose 97 02/12/22 16:34: POC Glucose 110 H 02/12/22 20:53: POC Glucose 137 H 02/13/22 06:02: POC Glucose 109 H Microbiology: Microbiology 02/09/22 10:55 Urine, Clean Catch Urine Culture - Final Mixed Gram Positive Organisms 02/08/22 11:32 Nasal Secretion SARS-CoV-2 Antigen (Rapid) - Final 02/08/22 10:20 Mucosa - Nose Influenza Types A,B Direct FA (DAPHNE) - Final Influenzae A D/C Instructions Discharge Diet: No restrictions Meaningful Use Info Meaningful Use Diagnoses (Choose all that apply): None applicable Discharge Plan Admission Admit Date/Time: 02/08/22 13:19 Primary Reason for Your Visit: Acute hypoxia/Influenza A Attending Provider: Sarah Matias Primary Care Provider: Shailesh Adler Consulting Providers: Christen Infante Instructions Additional Instructions / Restrictions: Continue to encourage use of incentive spirometer Discharge Orders/Prescriptions Prescriptions: New ipratropium-albuterol 0.5 mg-3 mg(2.5 mg base)/3 mL Solution For Nebulization 3 ml inhalation Q4HWA.RT PRN (Reason: Shortness Of Breath Or Wheezing) Qty: 0 0RF guaifenesin 100 mg/5 mL Liquid 20 ml PO Q4H PRN PRN (Reason: COUGH) Qty: 0 0RF Glucerna 1.2 Evan 0.06-1.2 gram-kcal/mL Liquid 120 ml PO 4X/DAY Qty: 0 0RF menthol-zinc oxide [Calmoseptine] 0.44-20.6 % Ointment 1 applic topical BID Qty: 0 0RF Protocol: *Topical Application Instructions APPLICATION INSTRUCTIONS: affected area Continued nitroglycerin 0.4 mg tablet, sublingual 0.4 mg SUBLINGUAL Q5-15M PRN (Reason: chest pain) Qty: 90 6RF Rx Instructions: until response; do not exceed 3 doses per episode metformin 1,000 mg tablet 1,000 mg PO DAILY memantine 5 mg tablet 5 mg PO QAM donepezil 10 mg tablet 20 mg PO DAILY simvastatin 20 mg tablet 20 mg PO QHS Qty: 90 3RF quetiapine [Seroquel] 200 mg tablet 200 mg PO DAILY atenolol 25 mg tablet 25 mg PO QHS Qty: 90 3RF Referrals / Follow Up: Shailesh Alder MD [Primary Care Provider] - Disposition Disposition (needs filled in before D/C Order can be placed): Detention Facility Charges/Coding Visit Charges Inpatient E&M: 97996 Disch Hosp
--- NOTE | 2022-02-13 10:09 | PHA.DC.MR ---
Pharmacy Service has performed discharge medication reconciliation for this patient. The patient's discharge medication list was reviewed for discrepancies and discrepancies were resolved. Home Medications nitroglycerin 0.4 mg sublingual tablet 0.4 mg sublingual Q5-15M PRN chest pain #90 tabs 11/26/17 metformin 1,000 mg tablet 1,000 mg PO DAILY 08/14/18 memantine 5 mg tablet 5 mg PO QAM 06/05/20 simvastatin 20 mg tablet 20 mg PO QHS #90 tabs 06/27/21 atenolol 25 mg tablet 25 mg PO QHS #90 tabs 10/02/21 donepezil 10 mg tablet 20 mg PO DAILY 01/09/22 quetiapine 200 mg tablet (Seroquel) 200 mg PO DAILY 01/09/22 guaifenesin 100 mg/5 mL oral liquid 20 ml PO Q4H PRN PRN COUGH #0 mL 02/13/22 ipratropium 0.5 mg-albuterol 3 mg (2.5 mg base)/3 mL nebulization soln 3 ml inhalation Q4HWA.RT PRN Shortness Of Breath Or Wheezing #0 mL 02/13/22 menthol 0.44 %-zinc oxide 20.6 % topical ointment (Calmoseptine) 1 applic topical BID #0 grams 02/13/22 nutrition tx glu intol,lac-free,soy-fiber 0.06 gram-1.2 kcal/mL liquid (Glucerna 1.2 Evan) 120 ml PO 4X/DAY #0 mL 02/13/22
[2022-02-13] MEDS: Menthol/Lanolin/Calamine/Znox 113 GM Tube 1 APPLIC TOPICAL (10:33)
[2022-02-13] MEDS: metFORMIN HCl 1,000 MG Tablet 1000 MG PO (10:34)
[2022-02-13] MEDS: Oseltamivir Phosphate 30 MG Capsule PO (10:35)
[2022-02-13] MEDS: Memantine Hydrochloride 5 MG Tablet PO (10:35)
--- NOTE | 2022-02-13 11:33 | CASEMGMT ---
Social Work? DUNG notified pt of discharge to [facility] today. DUNG completed 7000 convalescent form in [employer]. [facility] up cot transportation [facility] for 1:00 pm. DUNG faxed all discharge orders to [facility] via [employer] and notified of discharge time. DUNG notified pt nurse of transport time. DUNG made copies of discharge orders and placed on pt chart. Sent original orders in envelope with pt upon discharge.??DUNG called pt , Lesly, and left message with plan for discharge and transport time. Disposition: [facility], skilled, convalescent, level of care? HEMANT Miller?
[2022-02-13 11:43] VITALS: BP 110/56; PULSE 66; RESP 18; TEMP 37.1; O2SAT 98
[2022-02-13 11:51] LABS: Bedside Glucose 123 mg/dL (74-106)
--- NOTE | 2022-02-13 12:14 | NURSING ---
kitchen called approx 25 min ago and now for tray so pt can eat prior to departure to [facility]
--- NOTE | 2022-02-13 12:15 | NURSING ---
lungs have rhonchi all lobes pt does not cough when asked but does have a moist sounding cough and may be swallowing expectorated report call to Rosalind platt law in room
== END 2022-02-13 13:07 | disposition skilled nursing facility (03) | DRG 194 ==
LOC: ED 12:06 → MS3 12:34
PROVIDERS: Admitting Provider Student in an Organized Health Care Education/Training Program; Emergency Provider Student in an Organized Health Care Education/Training Program; PCP Family Medicine; Visit Provider Internal Medicine
DX: J10.1 Influenza due to other identified influenza virus with other respiratory manifestations (principal); D61.818 Other pancytopenia; D69.6 Thrombocytopenia, unspecified; S09.90XA Unspecified injury of head, initial encounter; E86.0 Dehydration; F02.80 Dementia in other diseases classified elsewhere, unspecified severity, without behavioral disturbance, psychotic disturbance, mood disturbance, and anxiety; E11.51 Type 2 diabetes mellitus with diabetic peripheral angiopathy without gangrene; G30.9 Alzheimer's disease, unspecified; Z79.4 Long term (current) use of insulin; E78.00 Pure hypercholesterolemia, unspecified; I10 Essential (primary) hypertension; I25.10 Atherosclerotic heart disease of native coronary artery without angina pectoris; E78.5 Hyperlipidemia, unspecified; E87.6 Hypokalemia; W19.XXXA Unspecified fall, initial encounter; Z66 Do not resuscitate; Z87.891 Personal history of nicotine dependence; Z79.84 Long term (current) use of oral hypoglycemic drugs; Z95.1 Presence of aortocoronary bypass graft
CPT/HCPCS: 36415; 70450; 71045; 72170; 80048; 80053; 81001; 82962; 83880; 84484; 85025; 87086; 87088; 87426; 87804; 87811; 93005; 94640; 97110; 97116; 97162; 97166; 97530; 97535; 99251; 99285; J7030; A4216; G0463

== ENCOUNTER 2022-02-17 00:12 | Emergency (ER) | payer MEDICARE, OTHER, SELFPAY ==
[2022-02-17 00:13] VITALS: BP 98/84; PULSE 56; RESP 16; TEMP 36.2; O2SAT 95; BMI 25.3
--- NOTE | 2022-02-17 00:54 | EDS_ITS ---
HPI History of Present Illness Chief Complaint: Confusion Informant: patient Narrative Narrative: Patient has no complaint. Evidently he had an episode at the senior living where he seemed to fall out. I do not know if this was syncope. They did send in a set of vitals that were essentially normal. I have no report of chest pain or other symptoms. He may have been a little bit less alert than normal. But I cannot get any details as to what happened. Patient has dementia. He states he feels fine. He does not recall any event. But he also states he has no medical problems and is been taking no medications. He does admit that he has had surgery in his life but does not recall what it is. He has obvious scars on his chest and abdomen. Again he denies feeling ill now all at all. He was in the hospital recently for some overall weakness and influenza. [facility] Medical History (Updated 02/17/22 @ 03:02 by Sugey Kaba) Anemia Atherosclerotic heart disease of [place] coronary artery without angina pectoris Bilateral carotid artery stenosis Dementia Essential hypertension Peripheral vascular disease Pure hypercholesterolemia Thrombocythemia Home Medications nitroglycerin 0.4 mg sublingual tablet 0.4 mg sublingual Q5-15M PRN chest pain #90 tabs 11/26/17 [Rx Last Taken Unknown] metformin 1,000 mg tablet 1,000 mg PO DAILY 08/14/18 [History Last Taken 02/07/22] memantine 5 mg tablet 5 mg PO QAM 06/05/20 [History Last Taken 02/07/22] simvastatin 20 mg tablet 20 mg PO QHS #90 tabs 06/27/21 [Rx Last Taken 02/07/22] atenolol 25 mg tablet 25 mg PO QHS #90 tabs 10/02/21 [Rx Last Taken 02/07/22] donepezil 10 mg tablet 20 mg PO DAILY 01/09/22 [History Last Taken 02/07/22] quetiapine 200 mg tablet (Seroquel) 200 mg PO DAILY 01/09/22 [History Last Taken 02/07/22] guaifenesin 100 mg/5 mL oral liquid 20 ml PO Q4H PRN PRN COUGH #0 mL 02/13/22 [Rx Last Taken Unknown] ipratropium 0.5 mg-albuterol 3 mg (2.5 mg base)/3 mL nebulization soln 3 ml inhalation Q4HWA.RT PRN Shortness Of Breath Or Wheezing #0 mL 02/13/22 [Rx Last Taken Unknown] menthol 0.44 %-zinc oxide 20.6 % topical ointment (Calmoseptine) 1 applic topical BID #0 grams 02/13/22 [Rx Last Taken Unknown] nutrition tx glu intol,lac-free,soy-fiber 0.06 gram-1.2 kcal/mL liquid (Glucerna 1.2 Evan) 120 ml PO 4X/DAY #0 mL 02/13/22 [Rx Last Taken Unknown] Allergy/AdvReac Type Severity Reaction Status Date / Time acetaminophen [From Percocet] Allergy I GET Verified 02/17/22 00:19 GOOFY iodine Allergy Itching Verified 02/17/22 00:19 oxycodone [From Percocet] Allergy I GET Verified 02/17/22 00:19 GOOFY Surgical History History of hernia repair (~05/2017) Hx of CABG (~10/09/00) Social History Smoking Status: Former smoker ROS ROS ED ROS Narrative Patient denies all symptoms. But he also has significant dementia and poor memory so I cannot count these review of systems as valuable or necessarily accurate. Review of Systems ROS Unobtainable: due to mental status EXAM Physical Exam Const Vital Signs: 02/17/22 00:13 02/17/22 02:13 Temperature 97.1 F L Temperature Source Axillary Pulse Rate 56 L 65 Respiratory Rate 16 15 Blood Pressure 98/84 H 104/73 Blood Pressure Mean 88 83 Pulse Ox 95 95 Oxygen Delivery Method Room Air Room Air Positive well nourished and well developed Constitutional Narrative: Possible mild pallor. General Appearance ED: well developed and NAD; Negative for diaphoretic Eyes General Eye ED: Negative for scleral icterus Neck no JVD Chest Wall inspection of chest normal Chest Narrative: Well-healed remote median sternotomy scar. Resp normal respiratory effort and clear to auscultation bilaterally Resp Narrative: Saturations are 94 to 96% on room air showing no hypoxia. Auscultation: Negative for rales, rhonchi or wheezes Cardio regular rhythm Rate: bradycardia and other Other Details: Heart rate is just slightly bradycardic. It does appear to be sinus rhythm on the monitor. I see no notable ectopy except for an occasional PAC.Heart rate is just slightly bradycardic. It does appear to be sinus rhythm on the monitor. I see no notable ectopy except for an occasional PAC. GI normal to inspection, nondistended, normoactive bowel sounds and non-tender GI Narrative: Multiple prior well-healed abdominal scars. Back/Spine no CVA tenderness Extremity normal to inspection General Extremety ED: Negative for tenderness Neuro Neuro Narrative: Patient is awake and alert. He is oriented to person. He was not sure where he was. He was not sure what the year was. Psych Mood & Affect: Negative for depressed or anxious Skin no rashes or lesions noted MDM MDM MDM Narrative Medical decision making narrative: Contact was made with the senior living. Evidently the patient had an episode where his O2 saturation was about 84 or 85%. But he is on as needed oxygen. There were also concerns that there has been an outbreak of influenza and COVID at the senior living. Family wanted him to be rechecked for influenza and COVID. He has known influenza positive and was just admitted for that. Currently his saturations are about 94% on room air. He has not needing oxygen and not complaining of dyspnea. Evidently the family was also concerned that they are not encouraging him to drink fluids and are afraid that he may be dehydrated. They wanted to see if they could get him to a different senior living tonight. The nurse had told them that getting him into a new senior living over the weekend at night on [address] is not something that is going to be able to be done acutely. He will get medically evaluated here. We are awaiting his r esults at this time. After a small amount of IV fluids, blood pressure was 115/79. Heart rate is 64. Patient is still asymptomatic. Blood work shows normal white count. Hemoglobin is minimally low at 12.5 but not causing his symptoms. Platelets were normal at 185. Electrolytes showed mild elevation of his creatinine and BUN above his baseline consistent with some mild dehydration. But his blood pressure is normal and he has been given some IV fluids. Lactate is normal. Calcium is normal. Urine shows no sign of infection. Patient's oxygen levels been fine here. His blood pressures been good. His heart rate is hanging around 60-65. He is getting up and going to the bathroom here. Influenza and COVID are negative at this time. My only report of concern was a transient hypoxia off of oxygen when the patient has oxygen available. There were also concerns of dehydration. He does have some mild dehydration and he was given some IV fluids. He is urinating well. No sign of infection. Overall his blood work looks good. I do not think we need to keep him in the hospital at this point. Lab Data Attestation: I reviewed the patient's lab results. Labs: Laboratory Results - last 24 hr 02/17/22 02/17/22 02/17/22 00:48 00:48 01:11 WBC 4.9 RBC 4.48 L Hgb 12.5 L Hct 38.9 L MCV 86.8 MCH 27.9 MCHC 32.1 D RDW Std Deviation 42.5 RDW Coeff of Meryl 13.4 Plt Count 185 MPV 8.8 Immature Gran % (Auto) 1.000 H Neut % (Auto) 67.8 Lymph % (Auto) 20.9 [place] % (Auto) 8.3 Eos % (Auto) 1.6 Baso % (Auto) 0.4 Absolute Neuts (auto) 3.4 Absolute Lymphs (auto) 1.03 Nucleated RBC % 0 Sodium 139 Potassium 4.1 Chloride 105 Carbon Dioxide 27.0 Anion Gap 7 BUN 29 H Creatinine 1.25 Estim Creat Clear Calc 42.99 Est GFR (MDRD) Af Amer 70 Est GFR (MDRD) Non-Af 58 L BUN/Creatinine Ratio 23.2 H Glucose 148 H Lactic Acid 1.3 Calcium 9.8 Urine Color Urine Clarity Urine pH Ur Specific [place] Urine Protein Urine Glucose (UA) Urine Ketones Urine Occult Blood Urine Nitrite Urine Bilirubin Urine Urobilinogen Ur Leukocyte Esterase Urine RBC Urine WBC Ur Squamous Epith Cells Urine Bacteria Hyaline Casts Urine Mucus 02/17/22 01:43 WBC RBC Hgb Hct MCV MCH MCHC RDW Std Deviation RDW Coeff of Meryl Plt Count MPV Immature Gran % (Auto) Neut % (Auto) Lymph % (Auto) [place] % (Auto) Eos % (Auto) Baso % (Auto) Absolute Neuts (auto) Absolute Lymphs (auto) Nucleated RBC % Sodium Potassium Chloride Carbon Dioxide Anion Gap BUN Creatinine Estim Creat Clear Calc Est GFR (MDRD) Af Amer Est GFR (MDRD) Non-Af BUN/Creatinine Ratio Glucose Lactic Acid Calcium Urine Color Yellow Urine Clarity Clear Urine pH 6.0 Ur Specific [place] 1.025 Urine Protein 100 H Urine Glucose (UA) Normal Urine Ketones 50 H Urine Occult Blood 10 H Urine Nitrite Negative Urine Bilirubin 3 H Urine Urobilinogen 4 H Ur Leukocyte Esterase 25 H Urine RBC 0-5 SEEN Urine WBC 0-5 SEEN Ur Squamous Epith Cells 0 SEEN Urine Bacteria 1+ Hyaline Casts 5-10 SEEN Urine Mucus 1+ EKG Initial EKG: Comments: EKG done for possible syncopal episode read by me showed sinus rhythm with bradycardic rate at 57. Occasional PAC. Nonspecific ST and T wave change but no sign of acute infarct. LA interval is long at 210 ms. QRS and QTc are normal. Discharge Plan Triage Chief Complaint: Confusion ED Provider: Jose Noguera Dx/Rx/DC Orders Clinical Impression: Dehydration, Hypoxia, History of influenza Instructions: Dehydration Prescriptions: No Action nitroglycerin 0.4 mg tablet, sublingual 0.4 mg SUBLINGUAL Q5-15M PRN (Reason: chest pain) Qty: 90 6RF Rx Instructions: until response; do not exceed 3 doses per episode metformin 1,000 mg tablet 1,000 mg PO DAILY memantine 5 mg tablet 5 mg PO QAM donepezil 10 mg tablet 20 mg PO DAILY simvastatin 20 mg tablet 20 mg PO QHS Qty: 90 3RF quetiapine [Seroquel] 200 mg tablet 200 mg PO DAILY ipratropium-albuterol 0.5 mg-3 mg(2.5 mg base)/3 mL Solution For Nebulization 3 ml inhalation Q4HWA.RT PRN (Reason: Shortness Of Breath Or Wheezing) Qty: 0 0RF guaifenesin 100 mg/5 mL Liquid 20 ml PO Q4H PRN PRN (Reason: COUGH) Qty: 0 0RF Glucerna 1.2 Evan 0.06-1.2 gram-kcal/mL Liquid 120 ml PO 4X/DAY Qty: 0 0RF menthol-zinc oxide [Calmoseptine] 0.44-20.6 % Ointment 1 applic topical BID Qty: 0 0RF Protocol: *Topical Application Instructions APPLICATION INSTRUCTIONS: affected area atenolol 25 mg tablet 25 mg PO QHS Qty: 90 3RF Primary Care Provider: Rosetta Hay Referrals: Rosetta Hay MD [Primary Care Provider] - Disposition Disposition: Longterm Facility
[2022-02-17 01:04] LABS: Absolute Lymphocyte Count 1.03 X10^3/uL (0.83-4.51); Absolute Neutrophil Count 3.4 X10^3/uL (2.0-7.7); Basophil# 0.02 X10^3/uL; Basophil% 0.4 % (0-1); Eosinophil# 0.08 X10^3/uL; Eosinophils% 1.6 % (0-5); Hematocrit 38.9 % (40-54); Hemoglobin 12.5 g/dL (13.0-16.5); Lymphocyte # 1.03 X10^3/ul (0.83-4.51); Lymphocyte % 20.9 % (19-41); Mean Corp Hgb Conc 32.1 g/dL (32-36); Mean Corpuscular Hgb 27.9 pg (27.0-32.0); Mean Corpuscular Volume 86.8 fL (80-94); Mean Platelet Vol. 8.8 fl (6.2-12.0); Monocyte# 0.41 X10^3/uL; Monocyte% 8.3 % (0-10); NRBC Flagged by Analyzer 0 % (0-5); Neutrophil # 3.35 X10^3/uL (2.7-7.7); Neutrophil % 67.8 % (47-70); Platelet Count 185 K/mm3 (150-450); RBC Distribution Width CV 13.4 % (11.6-14.6); RBC Distribution Width SD 42.5 fl (35.1-43.9); Red Blood Count 4.48 M/mm3 (4.6-6.2); White Blood Count 4.9 K/mm3 (4.4-11.0)
[2022-02-17 01:13] LABS: Anion Gap 7 (5-15); BUN 29 mg/dL (7-18); BUN/Creat Ratio 23.2 RATIO (10-20); Calcium,Total 9.8 mg/dL (8.5-10.1); Chloride 105 mmol/L (98-107); Creatinine, Serum 1.25 mg/dL (0.70-1.30); EST Glomerular Filtration Rate 58 mL/min (>60); Est Glom Filt Rate - Afr Amer 70 mL/min (>60); Estimated Creatinine Clearance 42.99 ml/min; Glucose 148 mg/dL (74-106); Potassium 4.1 mmol/L (3.5-5.1); Sodium Level 139 mmol/L (136-145)
[2022-02-17 01:45] LABS: Lactic Acid 1.3 mmol/L (0.4-1.9)
[2022-02-17 01:48] LABS: Squamous Epithelial Cells - UA 0 SEEN /hpf (0-5)
[2022-02-17 01:52] LABS: Color, Urine Yellow (Yellow); Glucose, Dipstick Normal (Normal); Ketone-Dipstick 50 mg/dl (Negative); Leukocyte Esterase-Dipstick 25 /ul (Negative); Nitrite-Dipstick Negative (Negative); Occult Blood-Urine 10 /ul (Negative); Protein-Dipstick 100 mg/dl (Negative); Specific Gravity, Urine 1.025 (1.002-1.030); Urine Clarity Clear (Clear); Urine Urobilinogen 4 mg/dl (Normal)
[2022-02-17 01:53] LABS: Urine Bilirubin Dipstick 3 mg/dL (Negative)
[2022-02-17 02:05] LABS: Bacteria 1+ /hpf (None Seen); Hyaline Cast 5-10 SEEN /lpf (0-5); Mucous, Urine 1+ /hpf (<or=2+); Red Blood Cells-Urine 0-5 SEEN /hpf (0-5); White Blood Cells 0-5 SEEN /hpf (0-5)
[2022-02-17 02:13] VITALS: BP 104/73; PULSE 65; RESP 15; O2SAT 95
[2022-02-17 06:51] VITALS: BP 116/84; PULSE 65; RESP 19; O2SAT 94
== END 2022-02-17 06:52 ==
PROVIDERS: Emergency Provider Emergency Medicine; PCP Internal Medicine; Visit Provider Emergency Medicine
DX: E86.0 Dehydration (principal); R09.02 Hypoxemia; I25.10 Atherosclerotic heart disease of native coronary artery without angina pectoris; Z87.891 Personal history of nicotine dependence
CPT/HCPCS: 80048; 81001; 83605; 85025; 87040; 87086; 87428; 93005; 99285; J7040; A4216

== ENCOUNTER → 2022-02-21 | Outpatient (REF) | payer SELFPAY ==
[2022-02-21 09:28] LABS: Hematocrit 37.2 % (40-54); Hemoglobin 12.5 g/dL (13.0-16.5); Mean Corp Hgb Conc 33.6 g/dL (32-36); Mean Corpuscular Hgb 29.1 pg (27.0-32.0); Mean Corpuscular Volume 86.5 fL (80-94); Mean Platelet Vol. 9.5 fl (6.2-12.0); Platelet Count 209 K/mm3 (150-450); RBC Distribution Width CV 13.6 % (11.6-14.6); RBC Distribution Width SD 41.9 fl (35.1-43.9); White Blood Count 5.2 K/mm3 (4.4-11.0)
[2022-02-21 09:41] LABS: Anion Gap 7 (5-15); BUN 26 mg/dL (7-18); BUN/Creat Ratio 25.5 RATIO (10-20); Calcium,Total 9.8 mg/dL (8.5-10.1); Chloride 107 mmol/L (98-107); Cholesterol 121 mg/dL (200); Creatinine, Serum 1.02 mg/dL (0.70-1.30); EST Glomerular Filtration Rate 73 mL/min (>60); Est Glom Filt Rate - Afr Amer 89 mL/min (>60); Glucose 99 mg/dL (74-106); High Density Lipoprotein 29 mg/dL; Potassium 3.7 mmol/L (3.5-5.1); Sodium Level 141 mmol/L (136-145); Triglycerides 149 mg/dL; Very Low Density Lipoprotein 30 mg/dL (5-40)
== END ==
LOC: OLS.SW 05:10
PROVIDERS: PCP Internal Medicine; Visit Provider Family Medicine
DX: I10 Essential (primary) hypertension (principal); E78.5 Hyperlipidemia, unspecified; I25.10 Atherosclerotic heart disease of native coronary artery without angina pectoris
CPT/HCPCS: 36415; 80048; 80061; 85027

== ENCOUNTER → 2022-06-17 | Outpatient (REF) | payer MEDICARE, OTHER, SELFPAY ==
[2022-06-17 08:34] LABS: Mucous, Urine 0 SEEN /hpf (<or=2+); Squamous Epithelial Cells - UA 0 SEEN /hpf (0-5); White Blood Cells 0 SEEN /hpf (0-5)
[2022-06-17 08:50] LABS: Color, Urine Yellow (Yellow); Glucose, Dipstick Normal (Normal); Ketone-Dipstick Negative (Negative); Leukocyte Esterase-Dipstick Negative /ul (Negative); Nitrite-Dipstick Negative (Negative); Occult Blood-Urine 25 /ul (Negative); Protein-Dipstick Negative (Negative); Urine Bilirubin Dipstick Negative (Negative); Urine Clarity Sl. Cloudy (Clear); Urine Urobilinogen Normal (Normal)
[2022-06-17 08:52] LABS: Hematocrit 32.5 % (40-54); Hemoglobin 10.5 g/dL (13.0-16.5); Mean Corp Hgb Conc 32.3 g/dL (32-36); Mean Corpuscular Hgb 28.7 pg (27.0-32.0); Mean Corpuscular Volume 88.8 fL (80-94); Mean Platelet Vol. 9.7 fl (6.2-12.0); Platelet Count 122 K/mm3 (150-450); RBC Distribution Width CV 14.6 % (11.6-14.6); RBC Distribution Width SD 48.1 fl (35.1-43.9); Red Blood Count 3.66 M/mm3 (4.6-6.2); White Blood Count 3.2 K/mm3 (4.4-11.0)
[2022-06-17 08:58] LABS: Bacteria 1+ /hpf (None Seen); Calcium Oxalate Crystals Ur 1+ /hpf (<or=2+); Red Blood Cells-Urine 0-5 SEEN /hpf (0-5)
[2022-06-17 09:16] LABS: ALB/GLOB Ratio 0.8 RATIO (0.9-2.4); AST(SGOT) 18 U/L (15-37); Alanine Aminotransfer ALT/SGPT 14 U/L (16-61); Albumin, Serum 2.9 g/dL (3.2-5.0); Alkaline Phosphatase 49 U/L (45-117); Anion Gap 3 (5-15); BUN 30 mg/dL (7-18); BUN/Creat Ratio 33.8 RATIO (10-20); Calcium,Total 9.5 mg/dL (8.5-10.1); Chloride 109 mmol/L (98-107); Creatinine, Serum 0.89 mg/dL (0.70-1.30); EST Glomerular Filtration Rate 86 mL/min (>60); Est Glom Filt Rate - Afr Amer 104 mL/min (>60); Globulin 3.6 g/dL (2.2-4.2); Glucose 105 mg/dL (74-106); Potassium 3.7 mmol/L (3.5-5.1); Protein, Total 6.5 g/dL (6.4-8.2); Sodium Level 138 mmol/L (136-145)
== END ==
LOC: OLS.SW 05:00
PROVIDERS: PCP Internal Medicine; Visit Provider Family Medicine
DX: N39.0 Urinary tract infection, site not specified (principal); F03.90 Unspecified dementia, unspecified severity, without behavioral disturbance, psychotic disturbance, mood disturbance, and anxiety
CPT/HCPCS: 36415; 80053; 81001; 85027; 87086; 87088

== ENCOUNTER → 2022-07-03 | Outpatient (REF) | payer MEDICARE, OTHER, SELFPAY ==
[2022-07-03 10:33] LABS: Hematocrit 32.2 % (40-54); Hemoglobin 10.1 g/dL (13.0-16.5); Mean Corp Hgb Conc 31.4 g/dL (32-36); Mean Corpuscular Hgb 28.2 pg (27.0-32.0); Mean Corpuscular Volume 89.9 fL (80-94); Mean Platelet Vol. 8.9 fl (6.2-12.0); Platelet Count 139 K/mm3 (150-450); RBC Distribution Width CV 14.4 % (11.6-14.6); RBC Distribution Width SD 47.4 fl (35.1-43.9); Red Blood Count 3.58 M/mm3 (4.6-6.2); White Blood Count 4.3 K/mm3 (4.4-11.0)
[2022-07-03 10:44] LABS: ALB/GLOB Ratio 0.8 RATIO (0.9-2.4); AST(SGOT) 16 U/L (15-37); Alanine Aminotransfer ALT/SGPT 14 U/L (16-61); Albumin, Serum 2.9 g/dL (3.2-5.0); Alkaline Phosphatase 59 U/L (45-117); Anion Gap 6 (5-15); BUN 21 mg/dL (7-18); BUN/Creat Ratio 22.8 RATIO (10-20); Calcium,Total 9.2 mg/dL (8.5-10.1); Chloride 109 mmol/L (98-107); Creatinine, Serum 0.92 mg/dL (0.70-1.30); EST Glomerular Filtration Rate 82 mL/min (>60); Est Glom Filt Rate - Afr Amer 100 mL/min (>60); Globulin 3.5 g/dL (2.2-4.2); Glucose 101 mg/dL (74-106); Potassium 3.8 mmol/L (3.5-5.1); Protein, Total 6.4 g/dL (6.4-8.2); Sodium Level 141 mmol/L (136-145)
== END ==
LOC: OLS.SW 05:00
PROVIDERS: PCP Internal Medicine; Visit Provider Family Medicine
DX: I10 Essential (primary) hypertension (principal)
CPT/HCPCS: 36415; 80053; 85027

== ENCOUNTER → 2022-08-16 | Outpatient (CLI) | payer MEDICARE, OTHER, SELFPAY ==
[2022-08-16 15:56] LABS: Absolute Lymphocyte Count 1.46 X10^3/uL (0.83-4.51); Absolute Neutrophil Count 2.3 X10^3/uL (2.0-7.7); Basophil# 0.03 X10^3/uL; Basophil% 0.7 % (0-1); Eosinophil# 0.08 X10^3/uL; Eosinophils% 1.9 % (0-5); Hematocrit 36.8 % (40-54); Hemoglobin 11.5 g/dL (13.0-16.5); Lymphocyte # 1.46 X10^3/ul (0.83-4.51); Lymphocyte % 34.3 % (19-41); Mean Corp Hgb Conc 31.3 g/dL (32-36); Mean Corpuscular Hgb 27.6 pg (27.0-32.0); Mean Corpuscular Volume 88.5 fL (80-94); Mean Platelet Vol. 9.3 fl (6.2-12.0); Monocyte# 0.39 X10^3/uL; Monocyte% 9.2 % (0-10); NRBC Flagged by Analyzer 0 % (0-5); Neutrophil # 2.29 X10^3/uL (2.7-7.7); Neutrophil % 53.7 % (47-70); Platelet Count 154 K/mm3 (150-450); RBC Distribution Width SD 48.6 fl (35.1-43.9); Red Blood Count 4.16 M/mm3 (4.6-6.2); White Blood Count 4.3 K/mm3 (4.4-11.0)
== END | disposition home or self-care (01) ==
LOC: LAB 14:17
PROVIDERS: PCP Internal Medicine; Referring Provider Nurse Practitioner Family; Visit Provider Nurse Practitioner Family
DX: I25.10 Atherosclerotic heart disease of native coronary artery without angina pectoris (principal)
CPT/HCPCS: 36415; 85025

== ENCOUNTER → 2022-09-12 | Outpatient (REF) | payer MEDICARE, OTHER, SELFPAY ==
[2022-09-12 09:51] LABS: Absolute Lymphocyte Count 1.29 X10^3/uL (0.83-4.51); Absolute Neutrophil Count 1.2 X10^3/uL (2.0-7.7); Basophil# 0.02 X10^3/uL; Basophil% 0.7 % (0-1); Eosinophil# 0.07 X10^3/uL; Eosinophils% 2.4 % (0-5); Hematocrit 32.2 % (40-54); Hemoglobin 10.1 g/dL (13.0-16.5); Lymphocyte # 1.29 X10^3/ul (0.83-4.51); Lymphocyte % 43.7 % (19-41); Mean Corp Hgb Conc 31.4 g/dL (32-36); Mean Corpuscular Hgb 27.4 pg (27.0-32.0); Mean Corpuscular Volume 87.3 fL (80-94); Mean Platelet Vol. 9.3 fl (6.2-12.0); Monocyte# 0.33 X10^3/uL; Monocyte% 11.2 % (0-10); NRBC Flagged by Analyzer 0 % (0-5); Neutrophil # 1.23 X10^3/uL (2.7-7.7); Neutrophil % 41.7 % (47-70); Platelet Count 110 K/mm3 (150-450); RBC Distribution Width CV 15.1 % (11.6-14.6); RBC Distribution Width SD 48.3 fl (35.1-43.9); Red Blood Count 3.69 M/mm3 (4.6-6.2)
[2022-09-12 10:06] LABS: Anion Gap 2 (5-15); BUN 22 mg/dL (7-18); BUN/Creat Ratio 21.6 RATIO (10-20); Calcium,Total 9.3 mg/dL (8.5-10.1); Chloride 108 mmol/L (98-107); Creatinine, Serum 1.02 mg/dL (0.70-1.30); EST Glomerular Filtration Rate 73 mL/min (>60); Est Glom Filt Rate - Afr Amer 89 mL/min (>60); Glucose 99 mg/dL (74-106); Potassium 4.6 mmol/L (3.5-5.1); Sodium Level 141 mmol/L (136-145)
[2022-09-12 10:13] LABS: Hemoglobin A1c 5.5 % (3.8-5.6)
== END ==
LOC: OLS.SW 05:00
PROVIDERS: PCP Internal Medicine; Visit Provider Family Medicine
DX: E11.9 Type 2 diabetes mellitus without complications (principal)
CPT/HCPCS: 36415; 80048; 83036; 85025

== ENCOUNTER → 2022-10-10 | Outpatient (REF) | payer MEDICARE, OTHER, SELFPAY ==
[2022-10-10 09:04] LABS: Hematocrit 33.7 % (40-54); Hemoglobin 10.7 g/dL (13.0-16.5); Mean Corp Hgb Conc 31.8 g/dL (32-36); Mean Corpuscular Hgb 27.9 pg (27.0-32.0); Mean Corpuscular Volume 87.8 fL (80-94); Mean Platelet Vol. 9.1 fl (6.2-12.0); Platelet Count 128 K/mm3 (150-450); RBC Distribution Width SD 50.5 fl (35.1-43.9); Red Blood Count 3.84 M/mm3 (4.6-6.2); White Blood Count 3.3 K/mm3 (4.4-11.0)
[2022-10-10 09:30] LABS: Anion Gap 4 (5-15); BUN 24 mg/dL (7-18); BUN/Creat Ratio 22.4 RATIO (10-20); Calcium,Total 9.5 mg/dL (8.5-10.1); Chloride 112 mmol/L (98-107); Creatinine, Serum 1.07 mg/dL (0.70-1.30); EST Glomerular Filtration Rate 69 mL/min (>60); Est Glom Filt Rate - Afr Amer 84 mL/min (>60); Glucose 117 mg/dL (74-106); Potassium 4.3 mmol/L (3.5-5.1); Sodium Level 144 mmol/L (136-145)
[2022-10-10 09:46] LABS: Digoxin Level 0.94 ng/mL (0.80-2.00)
== END ==
LOC: OLS.SW 05:00
PROVIDERS: PCP Internal Medicine; Visit Provider Family Medicine
DX: F03.90 Unspecified dementia, unspecified severity, without behavioral disturbance, psychotic disturbance, mood disturbance, and anxiety (principal); E11.9 Type 2 diabetes mellitus without complications; Z79.899 Other long term (current) drug therapy
CPT/HCPCS: 36415; 80048; 80162; 85027

== ENCOUNTER 2022-10-22 20:34 | Emergency (ER) | payer MEDICARE, OTHER, SELFPAY ==
[2022-10-22 20:36] VITALS: PULSE 66; RESP 18; TEMP 36.7; O2SAT 95; BMI 25.3
--- NOTE | 2022-10-22 21:15 | CT_ITS ---
INDICATION: Change in Mental Status EXAMINATION: CT BRAIN - CT Head or Brain W/O Contrast Injection TECHNIQUE: Multiple axial images were obtained of the head without intravenous contrast. A radiation dose optimization technique was used for this scan. IV Contrast dosage and agent: None. RADIATION DOSAGE (If Supplied By Facility): CTDIvol = ( 44.99 ) mGy, DLP = ( 762.36 ) mGycm COMPARISON: 02/08/2022. FINDINGS: BRAIN PARENCHYMA: No intra- or extra-axial hemorrhage. No evidence of acute infarct. No intracranial mass or mass effect. There is decreased attenuation within the deep periventricular white matter consistent with microangiopathic white matter disease. Posterior fossa structures are unremarkable. CSF SPACES: Moderate generalized brain atrophy. No hydrocephalus. Basal cisterns are patent. CALVARIUM, SKULL BASE, PARANASAL SINUSES AND MASTOID AIR CELLS: Clear. No discrete lytic or blastic abnormalities. ORBITS: Both globes, extraocular muscles, optic nerves and retrobulbar fat appear unremarkable. CT/Brain/Head without Contrast IMPRESSION: Chronic changes as described. No acute intracranial hemorrhage or space-occupying lesion. Electronically Signed: Yris Alas, at 21:58 EDT ,
--- NOTE | 2022-10-22 21:31 | EKG12_ITS ---
Test Reason : DYSRHYTHMIA Blood Pressure : / mmHG Vent. Rate : 062 BPM Atrial Rate : 062 BPM P-R Int : 240 ms QRS Dur : 090 ms QT Int : 374 ms P-R-T Axes : 081 039 054 degrees QTc Int : 379 ms Sinus rhythm with 1st degree A-V block with Premature supraventricular complexes Otherwise normal ECG Confirmed by LEELEE WELLINGTON, LONG ([id number]), assistant production editor ALL JEAN ([id number]) on 11/28/2022 1:31:13 PM Referred By: Confirmed By:FIDE MCKOY MD
[2022-10-22 21:34] VITALS: BP 110/66
[2022-10-22 21:45] LABS: Absolute Lymphocyte Count 1.09 X10^3/uL (0.83-4.51); Basophil# 0.01 X10^3/uL; Basophil% 0.3 % (0-1); Eosinophil# 0.05 X10^3/uL; Eosinophils% 1.4 % (0-5); Hematocrit 31.1 % (40-54); Lymphocyte # 1.09 X10^3/ul (0.83-4.51); Lymphocyte % 30.7 % (19-41); Mean Corp Hgb Conc 32.2 g/dL (32-36); Mean Corpuscular Hgb 28.1 pg (27.0-32.0); Mean Corpuscular Volume 87.4 fL (80-94); Mean Platelet Vol. 8.7 fl (6.2-12.0); Monocyte# 0.35 X10^3/uL; Monocyte% 9.9 % (0-10); NRBC Flagged by Analyzer 0 % (0-5); Neutrophil # 2.04 X10^3/uL (2.7-7.7); Neutrophil % 57.4 % (47-70); Platelet Count 138 K/mm3 (150-450); RBC Distribution Width SD 51.3 fl (35.1-43.9); Red Blood Count 3.56 M/mm3 (4.6-6.2); White Blood Count 3.6 K/mm3 (4.4-11.0)
--- NOTE | 2022-10-22 21:47 | RAD_ITS ---
INDICATION: psychiatric clearance EXAMINATION/TECHNIQUE: X-RAY - XR Chest 1 View COMPARISON: 02/08/2022. FINDINGS: LINES/DEVICES: None. LUNGS: The lungs are underexpanded with mild vascular crowding. Minimal bilateral basilar atelectasis, otherwise clear lungs. MEDIASTINUM AND CARDIOVASCULAR STRUCTURES: Cardiac silhouette not enlarged. Central airways and mediastinal contour are unremarkable. Mild at the sclerosis of aorta. Midline sternotomy wires. BONES AND SOFT TISSUES: Degenerative disease of the spine and bilateral shoulders. RAD/Chest 1 View (Portable) IMPRESSION: Minimal bilateral lower lobe atelectasis otherwise no acute cardiopulmonary disease. Electronically Signed: Yris Alas, at 21:59 EDT ,
[2022-10-22 22:00] VITALS: BP 132/67; PULSE 70; RESP 16; O2SAT 97
[2022-10-22 22:01] LABS: Alcohol, Blood (Medical)-Serum < 3.0 mg/dL
[2022-10-22 22:12] LABS: ALB/GLOB Ratio 0.8 RATIO (0.9-2.4); AST(SGOT) 30 U/L (15-37); Alanine Aminotransfer ALT/SGPT 84 U/L (16-61); Alkaline Phosphatase 83 U/L (45-117); Anion Gap 4 (5-15); BUN 32 mg/dL (7-18); BUN/Creat Ratio 26.7 RATIO (10-20); Calcium,Total 9.6 mg/dL (8.5-10.1); Chloride 106 mmol/L (98-107); EST Glomerular Filtration Rate 61 mL/min (>60); Est Glom Filt Rate - Afr Amer 74 mL/min (>60); Estimated Creatinine Clearance 44.78 ml/min; Globulin 3.6 g/dL (2.2-4.2); Glucose 116 mg/dL (74-106); Potassium 4.3 mmol/L (3.5-5.1); Protein, Total 6.6 g/dL (6.4-8.2); Sodium Level 140 mmol/L (136-145); Thyroid Stim Hormone (TSH) 1.59 uIU/mL (0.358-3.74)
[2022-10-22 22:45] LABS: Bacteria 0 SEEN /hpf (None Seen); Mucous, Urine 0 SEEN /hpf (<or=2+); Squamous Epithelial Cells - UA 0 SEEN /hpf (0-5); White Blood Cells 0 SEEN /hpf (0-5)
[2022-10-22 22:50] LABS: Color, Urine Yellow (Yellow); Glucose, Dipstick Normal (Normal); Ketone-Dipstick Negative (Negative); Leukocyte Esterase-Dipstick Negative /ul (Negative); Nitrite-Dipstick Negative (Negative); Occult Blood-Urine 25 /ul (Negative); Protein-Dipstick 15 mg/dl (Negative); Specific Gravity, Urine 1.015 (1.002-1.030); Urine Bilirubin Dipstick Negative (Negative); Urine Clarity Clear (Clear); Urine Urobilinogen Normal (Normal); Urine pH 6.5 (5.0 - 8.0)
[2022-10-22 23:00] VITALS: BP 122/66; RESP 15; O2SAT 98
[2022-10-22 23:00] LABS: Red Blood Cells-Urine 0-5 SEEN /hpf (0-5)
[2022-10-22 23:02] LABS: Amphetamine Urine VISTA NEGATIVE (<1000 ng/mL); Barbiturate Urine VISTA NEGATIVE (< 200 ng/mL); Benzodiazepine Urine VISTA NEGATIVE (< 200 ng/mL); Cocaine Urine VISTA NEGATIVE (< 300 ng/mL); Ecstacy Urine VISTA NEGATIVE (< 500 ng/mL); Methadone Urine VISTA NEGATIVE (< 300 ng/mL); PCP Urine VISTA NEGATIVE (< 25 ng/mL); THC Urine VISTA NEGATIVE (< 50 ng/mL); Vista UDS pH Range 6
--- NOTE | 2022-10-22 23:07 | NURSING ---
CALLED CRISIS AND FAXED CHART AT [phone]
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
[2022-10-23] VITALS: RESP 16
[2022-10-23 00:19] LABS: Digoxin Level 0.85 ng/mL (0.80-2.00)
[2022-10-23 01:00] VITALS: RESP 16
[2022-10-23 01:55] VITALS: BP 119/70; PULSE 74; RESP 16; O2SAT 98
--- NOTE | 2022-10-23 02:24 | ED.RN ---
Crisis here to evaluate pt. Pt not meeting criteria for [facility] placement. Report called to SULTANA Coleman at [facility] about pt being d/c back there.
== END 2022-10-23 06:37 | disposition skilled nursing facility (03) ==
PROVIDERS: Emergency Provider Emergency Medicine; PCP Internal Medicine; Visit Provider Emergency Medicine
DX: S00.81XA Abrasion of other part of head, initial encounter (principal); F02.818 Dementia in other diseases classified elsewhere, unspecified severity, with other behavioral disturbance; I25.10 Atherosclerotic heart disease of native coronary artery without angina pectoris; I10 Essential (primary) hypertension; N40.0 Benign prostatic hyperplasia without lower urinary tract symptoms; Z87.891 Personal history of nicotine dependence; Z79.01 Long term (current) use of anticoagulants; Z79.899 Other long term (current) drug therapy; X58.XXXA Exposure to other specified factors, initial encounter
CPT/HCPCS: 70450; 71045; 80053; 80162; 80307; 81001; 82077; 84443; 85025; 87811; 93005; 99284